=== PATIENT | female | born 1945 ===

== ENCOUNTER 2018-06-03 09:36 | Outpatient (REF) | payer MEDICARE, OTHER, SELFPAY ==
[2018-06-03 12:02] LABS: Anion Gap 9.3 mmol/L (3-11); BUN 17 mg/dL (7-18); CO2 25.7 mmol/L (21.0-32.0); CREATININE 0.94 mg/dL (0.55-1.02); Chloride 100 mmol/L (98-107); Estimated GFR 58.87 (mL/min/1.73m2); Glucose 112 mg/dL (70-100); Potassium 4.2 mmol/L (3.5-5.1); Sodium 135 mmol/L (136-145)
== END 2018-06-03 09:37 ==
LOC: NCHCN 09:36
PROVIDERS: PCP Nurse Practitioner Family; Visit Provider Nurse Practitioner Family
DX: I10 Essential (primary) hypertension (principal)
CPT/HCPCS: 80048

== ENCOUNTER 2018-06-10 10:00 | Outpatient (CLI) | payer MEDICARE, OTHER, SELFPAY | END 2018-06-10 10:01 | PROVIDERS: PCP Nurse Practitioner Family; Visit Provider Orthopaedic Surgery | DX: M70.62 Trochanteric bursitis, left hip (principal); M25.552 Pain in left hip | CPT/HCPCS: 20610; 99213; J1040 ==

== ENCOUNTER 2018-06-22 11:08 | Outpatient (REF) | payer MEDICARE, OTHER, SELFPAY ==
[2018-06-22 12:46] LABS: Iron 79 ug/dL (50-175); Total Iron Binding Capacity 316 ug/dL (250-450); Transferrin Sat 25 % (15-50)
[2018-06-22 12:47] LABS: Abs Immature Grans 0.11 k/cumm (0.0-0.09); Absolute Basophil Count 0.03 k/cumm (0.0-0.2); Absolute Lymphocyte Count 2.33 k/cumm (1.2-3.4); Basophils % 0.2; Eosinophils % 1.6; HGB 13.5 g/dL (12.0-15.5); Immature Grans % 0.8; Lymphocytes % 17.2; Mean Corp. HGB Concentration 32.9 g/dL (32.0-36.0); Mean Corpuscular Hemoglobin 28.4 pg (27.0-33.0); Mean Corpuscular Volume 86.3 fL (80-95); Monocytes % 6.7; Neutrophils % 73.5; Platelet Count 355 x1000/uL (130-400); RBC 4.75 m/cumm (4.00-5.20); RBC Distribution Width 13.7 % (11.7-14.6); White Blood Cell Count 13.53 k/cumm (4.4-10.8)
[2018-06-22 12:49] LABS: Absolute Eosinophil Count 0.22 k/cumm (0.0-0.7); Absolute Monocyte Count 0.91 k/cumm (0.11-0.7); Absolute Neutrophil Count 9.94 k/cumm (1.2-6.7)
[2018-06-22 13:06] LABS: Anion Gap 7.5 mmol/L (3-11); BUN 20 mg/dL (7-18); CO2 25.5 mmol/L (21.0-32.0); CREATININE 0.97 mg/dL (0.55-1.02); Calcium 8.9 mg/dL (8.5-10.1); Chloride 98 mmol/L (98-107); Estimated GFR 56.77 (mL/min/1.73m2); Ferritin 137 ng/mL (8-388); Glucose 96 mg/dL (70-100); Magnesium 1.7 mg/dL (1.8-2.4); Potassium 4.1 mmol/L (3.5-5.1); Sodium 131 mmol/L (136-145); Vitamin B12 420 pg/mL (193-986)
== END 2018-06-22 11:09 ==
LOC: NCHCN 11:08
PROVIDERS: PCP Nurse Practitioner Family; Visit Provider Nurse Practitioner Family
DX: E87.1 Hypo-osmolality and hyponatremia (principal); R25.2 Cramp and spasm; M79.669 Pain in unspecified lower leg; Z86.39 Personal history of other endocrine, nutritional and metabolic disease
CPT/HCPCS: 80048; 82607; 82728; 83540; 83550; 83735; 85025

== ENCOUNTER 2018-06-30 11:06 | Outpatient (REF) | payer MEDICARE, OTHER, SELFPAY ==
[2018-06-30 22:31] LABS: ALT 25 U/L (12-78); AST 14 U/L (15-37); Albumin 3.5 g/dL (3.4-5.0); Alkaline Phosphatase 69 U/L (46-116); Anion Gap 3.8 mmol/L (3-11); BUN 13 mg/dL (7-18); Bilirubin, Total 0.3 mg/dL (0.2-1.0); CO2 29.2 mmol/L (21.0-32.0); CREATININE 0.74 mg/dL (0.55-1.02); Calcium 8.8 mg/dL (8.5-10.1); Chloride 106 mmol/L (98-107); Glucose 76 mg/dL (70-100); Potassium 4.2 mmol/L (3.5-5.1); Sodium 139 mmol/L (136-145); Total Protein 6.8 g/dL (6.4-8.2)
[2018-06-30 23:08] LABS: Abs Immature Grans 0.03 k/cumm (0.0-0.09); Absolute Basophil Count 0.03 k/cumm (0.0-0.2); Absolute Eosinophil Count 0.18 k/cumm (0.0-0.7); Absolute Lymphocyte Count 2.17 k/cumm (1.2-3.4); Absolute Monocyte Count 0.56 k/cumm (0.11-0.7); Absolute Neutrophil Count 5.97 k/cumm (1.2-6.7); Basophils % 0.3; HCT 41.3 % (36.0-46.0); HGB 13.3 g/dL (12.0-15.5); Immature Grans % 0.3; Lymphocytes % 24.3; Mean Corp. HGB Concentration 32.2 g/dL (32.0-36.0); Mean Corpuscular Hemoglobin 28.7 pg (27.0-33.0); Mean Corpuscular Volume 89.2 fL (80-95); Mean Platelet Volume 9.6 fL (8.0-11.0); Monocytes % 6.3; Neutrophils % 66.8; Platelet Count 303 x1000/uL (130-400); RBC 4.63 m/cumm (4.00-5.20); RBC Distribution Width 14.3 % (11.7-14.6); White Blood Cell Count 8.94 k/cumm (4.4-10.8)
== END 2018-06-30 11:26 ==
LOC: NCHCN 11:06
PROVIDERS: PCP Nurse Practitioner Family; Visit Provider Nurse Practitioner Family
DX: D72.829 Elevated white blood cell count, unspecified (principal); I10 Essential (primary) hypertension
CPT/HCPCS: 80053; 85025

== ENCOUNTER 2018-08-10 00:56 | Outpatient (CLI) | payer MEDICARE, OTHER, SELFPAY ==
--- NOTE | 2018-08-10 13:30 | DI.DEXA_ITS ---
SYMPTOMS/DIAGNOSIS: MENOPAUSAL SCREENING, Z78.0 DEXA SCAN: The scanogram of the dorsolumbar spine is unremarkable. For the right forearm a T score of -0.5 and a Z score of 1.6 are within the normal range. For the left hip a T score of -0.7 and a Z score of 0.8 are also within the normal range. For the lumbar spine a T score of 0.5 and a Z score of 2.7 are within the normal range.
== END 2018-08-10 01:16 ==
PROVIDERS: PCP Nurse Practitioner Family; Visit Provider Nurse Practitioner Family
DX: Z78.0 Asymptomatic menopausal state (principal); Z13.820 Encounter for screening for osteoporosis
CPT/HCPCS: 77080

== ENCOUNTER → 2018-08-17 08:27 | Outpatient (BNVA) | payer MEDICARE, OTHER, SELFPAY | PROVIDERS: PCP Nurse Practitioner Family; Visit Provider Surgery | DX: R13.10 Dysphagia, unspecified (principal); I10 Essential (primary) hypertension | CPT/HCPCS: 99202; 99213 ==

== ENCOUNTER 2018-08-24 07:36 | Day surgery (SDC) | payer MEDICARE, OTHER, SELFPAY ==
--- NOTE | 2018-08-24 06:32 | W.PM.OP ---
Operative Note DATE OF PROCEDURE: 08/24/18 PRE-OP DIAGNOSIS: Dysphagia POST-OP DIAGNOSIS: other (mild gastritis, severe esophagitis with schatzki's ring) PROCEDURE: EGD with biopsies SURGEON: Yaneth Ny ANESTHESIA: MAC (Iraida Ramirez CRNA) ESTIMATED BLOOD LOSS: 3 PATHOLOGY: other (gastric biopsies, GE junction biopsies) COMPLICATIONS: None Patient was transported to: same day Patient's condition: stable Indications: Mrs. Montesinos is a pleasant 73-year-old female who was seen in the office with some swallowing issues. Risks, benefits and complications of an upper endoscopy were reviewed with her. She wished to proceed. No guarantees were given or implied. Findings: Mild gastritis Severe esophagitis with Schatzki's ring Procedure Description: After informed consent was obtained the patient was taken to the procedure room and placed in a supine position. Monitors were applied and a time out was done. The patients name, date of , procedure, allergies to medications and metal in their body was reviewed. The patient was then sedated. Once sedated and comfortable a bite block was placed. The scope was then introduced into the oropharynx. The oropharynx was grossly normal. The scope was advanced into the esophagus. The proximal and mid esophagus were normal. In the distal esophagus there was severe inflammation with a schatzki's ring at 32 cm. There was a small Hiatal Hernia. The scope was advanced into the stomach and through the pylorus into the duodenum. The duodenum was normal. The scope was retracted back into the stomach. There was mild inflammation of the stomach. Biopsies were done to rule out H. pylori. The scope was retracted into the esophagus and biopsies were done of the GE junction. The scope was removed and the patient was woken up and taken back to Same day surgery in stable condition. The patient tolerated the procedure well and there were no immediate complications. Follow up: The patient should follow up in 2-3 weeks in the office.
--- NOTE | 2018-08-24 06:42 | PDOC.DSDIS_ITS ---
Discharge Plan Disposition Patient Disposition: HOME Condition: Good Discharge Details Reason For Visit: Dysphagia/ EGD Attending Provider: Yaneth Ny Primary Care Provider: Meka Hadley Home Meds and New Rx's Prescriptions: Continue omega-3 fatty acids [Fish Oil Concentrate] 1,000 mg capsule 1,000 mg PO DAILY RF: 0 amlodipine 10 MG tablet 10 mg PO DAILY Qty: 30 RF: 0 lisinopril 40 MG tablet 40 mg PO DAILY RF: 0 potassium 99 mg Tablet 99 mg PO DAILY RF: 0 ergocalciferol (vitamin D2) [Vitamin D2] 50,000 unit Capsule 50,000 unit PO QWEEK RF: 0 metoprolol tartrate 25 MG tablet 25 mg PO TID RF: 0 Changed famotidine 20 MG tablet 20 mg PO HS Qty: 0 RF: 0 Discharge Instructions Instructions: Upper Endoscopy (DC), Gastritis (DC), Diet for Stomach Ulcers and Gastritis (GEN), Esophagitis (DC) Additional Instructions: Findings: Mild inflammation of the stomach Severe inflammation of the esophagus Follow up: 09/07 @13:15 New Medications: Omeprazole 40 mg in the morning Take your Famotidine (Pepcid) in the evening Please call if you develop: fevers >101.5 Nausea or Vomiting Abdominal pain that is not transient Shortness of breath DAY SURGERY UNIT POST COLONOSCOPY INSTRUCTIONS 1. Because there will be medication in your system for the next 24 hours, you may feel a little sleepy. Your coordination will be affected. Therefore: a. Do not drive or operate dangerous equipment for 24 hours. b. Do not drink alcohol beverages for 24 hours (not even beer). c. Plan to go home and rest for the day. 2. Generally there are no restrictions on your activity after a day or so has gone by, but you may feel a bit fatigued for a few days. 3 After you arrive home you may have a light meal and return to a normal diet as you can tolerate it without feeling sick to your stomach. 4. After surgery, you may feel pain or discomfort. This should be only transient , but if it persists please contact your doctor. 5. If there are any questions regarding the findings of your procedure, please feel free to contact your doctor. 6. If you are unable to contact your doctor with a problem, contact the hospital at [phone]. 7. Continue all your regular medications unless directed otherwise. I understand the above instructions and have no questions. Signature of Patient or Responsible Adult Escort Date/Time Name of Responsible Adult Escort Signature of Nurse Date/Time Referrals: Yaneth Ny MD [ [facility] STAFF PHYSICIAN] - 09/07/18 1:15 pm Activity:: Activity as Tolerated Diet:: low acid Discharge Orders Discharge Orders: Discharge Order (Routine); Ordered 08/24/18 Ordered By: Yaneth Ny
[2018-08-24 07:53] VITALS: BP 135/70; PULSE 58; RESP 18; TEMP 35.9; O2SAT 96
[2018-08-24] MEDS: Lactated Ringers 1,000 ML 80 ML IV (08:15)
--- NOTE | 2018-08-24 10:00 | STOM_PTH ---
PATIENT: Geovanna Montesinos LOC: DEB U#:[id number] AGE/SX: 73/F ROOM: RE08/24/[address]: Yaneth Ny MD : [id number] BED: DIS: 08/24/2018 SPEC #: [id number] RECD: 08/24/18 13:06 STATUS: JAN REQ #: [id number] SHERRY: 08/24/18 10:[address]: Yaneth Ny DEPT: Surgical Specimen RECD BY: Ольга Parham ENTERED: 08/24/18 13:09 SP TYPE: STOMACH OTHR DR: Meka Hadley Tissues: 1 - STOMACH BIOPSY 2 - ESOPHAGUS BIOPSY Procedures: GROSS AND MICRO LEVEL 4 Comments: [id number]
[2018-08-24 10:45] VITALS: BP 119/61; PULSE 58; RESP 16; TEMP 36; O2SAT 99
== END 2018-08-24 12:00 | disposition home or self-care (01) ==
LOC: SUR 07:36
PROVIDERS: PCP Nurse Practitioner Family; Visit Provider Surgery
PROC: 0DJ68ZZ Inspection of Stomach, Via Natural or Artificial Opening Endoscopic (ICD-10-PCS; CPT 43235; principal; 2018-08-24 09:00)
DX: R13.10 Dysphagia, unspecified (principal); K22.10 Ulcer of esophagus without bleeding; K21.0 Gastro-esophageal reflux disease with esophagitis; K31.89 Other diseases of stomach and duodenum; K44.9 Diaphragmatic hernia without obstruction or gangrene; I10 Essential (primary) hypertension
CPT/HCPCS: 43239; 88305

== ENCOUNTER 2018-09-14 10:59 | Outpatient (REF) | payer MEDICARE, OTHER, SELFPAY ==
[2018-09-14 13:06] LABS: Magnesium 1.9 mg/dL (1.8-2.4)
[2018-09-15 09:36] LABS: Hepatitis C Ab w Rflx HCV PCR Negative (NEGAT)
== END 2018-09-14 11:19 ==
LOC: NCHCN 10:59
PROVIDERS: PCP Nurse Practitioner Family; Visit Provider Nurse Practitioner Family
DX: E83.42 Hypomagnesemia (principal); I10 Essential (primary) hypertension; I25.10 Atherosclerotic heart disease of native coronary artery without angina pectoris; E87.1 Hypo-osmolality and hyponatremia; Z11.59 Encounter for screening for other viral diseases
CPT/HCPCS: 86803; 83735

== ENCOUNTER → 2018-09-28 13:59 | Outpatient (BNVA) | payer MEDICARE, OTHER, SELFPAY | PROVIDERS: PCP Nurse Practitioner Family; Referring Provider Nurse Practitioner Family; Visit Provider Surgery | DX: K20.9 Esophagitis, unspecified (principal); K29.00 Acute gastritis without bleeding; I10 Essential (primary) hypertension | CPT/HCPCS: 99212 ==

== ENCOUNTER 2019-01-06 14:44 | Outpatient (REF) | payer MEDICARE, OTHER, SELFPAY ==
[2019-01-06 21:33] LABS: Abs Immature Grans 0.04 k/cumm (0.0-0.09); Absolute Basophil Count 0.02 k/cumm (0.0-0.2); Absolute Eosinophil Count 0.14 k/cumm (0.0-0.7); Absolute Lymphocyte Count 2.25 k/cumm (1.2-3.4); Absolute Monocyte Count 0.55 k/cumm (0.11-0.7); Absolute Neutrophil Count 4.44 k/cumm (1.2-6.7); Basophils % 0.3; Eosinophils % 1.9; HCT 42.8 % (36.0-46.0); HGB 14.1 g/dL (12.0-15.5); Immature Grans % 0.5; Lymphocytes % 30.2; Mean Corp. HGB Concentration 32.9 g/dL (32.0-36.0); Mean Corpuscular Hemoglobin 28.4 pg (27.0-33.0); Mean Corpuscular Volume 86.1 fL (80-95); Mean Platelet Volume 9.9 fL (8.0-11.0); Monocytes % 7.4; Neutrophils % 59.7; Platelet Count 304 x1000/uL (130-400); RBC 4.97 m/cumm (4.00-5.20); RBC Distribution Width 13.9 % (11.7-14.6); White Blood Cell Count 7.44 k/cumm (4.4-10.8)
[2019-01-06 21:49] LABS: Iron 76 ug/dL (50-175); Total Iron Binding Capacity 315 ug/dL (250-450); Transferrin Sat 24 % (15-50)
[2019-01-06 22:23] LABS: ALT 18 U/L (12-78); AST 19 U/L (15-37); Albumin 3.5 g/dL (3.4-5.0); Alkaline Phosphatase 77 U/L (46-116); Anion Gap 9.1 mmol/L (3-11); BUN 17 mg/dL (7-18); Bilirubin, Total 0.5 mg/dL (0.2-1.0); CO2 27.9 mmol/L (21.0-32.0); Calcium 9.5 mg/dL (8.5-10.1); Chloride 106 mmol/L (98-107); Cholesterol 189 mg/dL (50-200); Ferritin 60 ng/mL (8-388); Glucose 81 mg/dL (70-100); HDL Cholesterol 45 mg/dL (40-60); LDL CHOLESTEROL 120 mg/dL (<100); Magnesium 1.9 mg/dL (1.8-2.4); Potassium 4.4 mmol/L (3.5-5.1); Sodium 143 mmol/L (136-145); TSH (W/Ref FT4) 1.67 uIU/mL (0.358-3.74); Total Protein 6.8 g/dL (6.4-8.2); Triglyceride 131 mg/dL (30-150); Vitamin B12 418 pg/mL (193-986)
== END 2019-01-06 15:04 ==
LOC: NCHCN 14:44
PROVIDERS: PCP Nurse Practitioner Family; Visit Provider Nurse Practitioner Family
DX: E83.42 Hypomagnesemia (principal); R41.82 Altered mental status, unspecified; E87.1 Hypo-osmolality and hyponatremia; I25.10 Atherosclerotic heart disease of native coronary artery without angina pectoris; I10 Essential (primary) hypertension; R41.0 Disorientation, unspecified
CPT/HCPCS: 80053; 80061; 83721; 82607; 82728; 83540; 83550; 83735; 84443; 85025

== ENCOUNTER 2019-01-17 00:49 | Outpatient (CLI) | payer MEDICARE, OTHER, SELFPAY ==
[2019-01-17] MEDS: Omnipaque 350 MG/ML 100 ML BTL IJ (13:51)
--- NOTE | 2019-01-17 13:52 | DI.CT_ITS ---
SYMPTOMS/DIAGNOSIS: CONFUSION, R41.0, MEMORY LOSS, MOMENT OF BLACK OUT, BUT STILL FUNCTIONING CT ANGIOGRAPHY OF THE BRAIN: No prior comparison exams are available. There is no evidence of vascular occlusion, dissection or significant stenosis. There is no vessel irregularity. No aneurysm is seen. A left frontal osteoma is seen. The mastoid air cells appear clear. There is minimal sinus mucosal thickening. IMPRESSION: No significant vascular stenosis or aneurysm. Incidental small left frontal skull osteoma.
== END 2019-01-17 01:09 ==
PROVIDERS: PCP Nurse Practitioner Family; Visit Provider Nurse Practitioner Family
DX: R41.0 Disorientation, unspecified (principal); R41.3 Other amnesia; R40.4 Transient alteration of awareness
CPT/HCPCS: 70496; J3490

== ENCOUNTER → 2019-02-21 08:25 | Outpatient (BNVA) | payer MEDICARE, OTHER, SELFPAY | PROVIDERS: PCP Nurse Practitioner Family; Referring Provider Nurse Practitioner Family; Visit Provider Nurse Practitioner Adult Health | DX: R41.3 Other amnesia (principal); I10 Essential (primary) hypertension | CPT/HCPCS: 99204; 99214 ==

== ENCOUNTER → 2019-05-09 09:29 | Outpatient (BNVA) | payer MEDICARE, OTHER, SELFPAY | PROVIDERS: PCP Nurse Practitioner Family; Visit Provider Nurse Practitioner Adult Health | DX: R41.3 Other amnesia (principal); I10 Essential (primary) hypertension | CPT/HCPCS: 99213 ==

== ENCOUNTER 2019-07-05 00:19 | Outpatient (CLI) | payer MEDICARE, OTHER, SELFPAY ==
--- NOTE | 2019-07-05 08:45 | DI.MAMMO_ITS ---
SYMPTOM/DIAGNOSIS: SCREENING Z12.31 MAMMOGRAM: 07/05 Mammograms were interpreted according to the usual protocol including computer analysis with CAD system, tomosynthesis and C view imaging. The breasts are of moderate density with fairly symmetrical distribution of fibroglandular tissue. No dominant mass or clumped microcalcification is identified in either breast. The current examination is compared with previous examinations including Jun 2017 and there has been no gross interval change in appearance in comparison with the previous studies. CONCLUSION: No specific evidence of malignancy at this time. Routine screening examinations are suggested at yearly intervals due to the family history of breast carcinoma. Category 1, breast density category B. MQSA ASSESSMENT OF FINDINGS: Negative. Category 1. Patient will receive a letter notifying them of these results. BI-RADS category B. There are scattered areas of fibroglandular density.
== END 2019-07-05 00:39 ==
PROVIDERS: PCP Nurse Practitioner Family; Visit Provider Nurse Practitioner Family
DX: Z12.31 Encounter for screening mammogram for malignant neoplasm of breast (principal); Z80.3 Family history of malignant neoplasm of breast
CPT/HCPCS: 77063; 77067

== ENCOUNTER 2019-12-12 22:56 | Outpatient (REF) | payer MEDICARE, OTHER, SELFPAY ==
[2019-12-12 21:23] LABS: Albumin 3.4 g/dL (3.4-5.0); Alkaline Phosphatase 69 U/L (46-116); Anion Gap 11.8 mmol/L (3-11); BUN 13 mg/dL (7-18); Bilirubin, Total 0.5 mg/dL (0.2-1.0); CO2 24.2 mmol/L (21.0-32.0); CREATININE 0.89 mg/dL (0.55-1.02); Calculated LDL 102 mg/dL (<100); Chloride 105 mmol/L (98-107); Cholesterol 176 mg/dL (<200); Glucose 125 mg/dL (74-106); HDL Cholesterol 40 mg/dL (40-60); Magnesium 1.9 mg/dL (1.8-2.4); Potassium 4.4 mmol/L (3.5-5.1); Sodium 141 mmol/L (136-145); Total Protein 6.5 g/dL (6.4-8.2); Triglyceride 171 mg/dL (<150); Vitamin B12 411 pg/mL (193-986)
[2019-12-12 21:51] LABS: ALT 25 U/L (14-59); AST 17 U/L (15-37)
== END 2019-12-12 23:16 ==
LOC: NCHCN 22:56
PROVIDERS: PCP Nurse Practitioner Family; Visit Provider Nurse Practitioner Family
DX: I10 Essential (primary) hypertension (principal); I25.10 Atherosclerotic heart disease of native coronary artery without angina pectoris; E87.1 Hypo-osmolality and hyponatremia; E83.42 Hypomagnesemia; R25.2 Cramp and spasm; E66.9 Obesity, unspecified
CPT/HCPCS: 80053; 80061; 82607; 83735

== ENCOUNTER 2020-11-15 11:32 | Outpatient (REF) | payer MEDICARE, OTHER, SELFPAY ==
[2020-11-15 14:32] LABS: ALT 28 U/L (14-59); AST 16 U/L (15-37); Albumin 3.6 g/dL (3.4-5.0); Alkaline Phosphatase 63 U/L (46-116); Anion Gap 9.1 mmol/L (3-11); BUN 16 mg/dL (7-18); Bilirubin, Total 0.6 mg/dL (0.2-1.0); CO2 26.9 mmol/L (21.0-32.0); CREATININE 0.97 mg/dL (0.55-1.02); Calcium 9.1 mg/dL (8.5-10.1); Calculated LDL 118 mg/dL (<100); Chloride 107 mmol/L (98-107); Cholesterol 185 mg/dL (<200); Estimated GFR 56.29 (mL/min/1.73m2); Glucose 90 mg/dL (74-106); HDL Cholesterol 46 mg/dL (40-60); Potassium 4.4 mmol/L (3.5-5.1); Sodium 143 mmol/L (136-145); TSH (W/Ref FT4) 1.25 uIU/mL (0.36-3.74); Triglyceride 109 mg/dL (<150); Vitamin B12 423 pg/mL (193-986)
[2020-11-15 14:41] LABS: Vitamin D 25 Total 82.3 ng/ml (30-100)
== END 2020-11-15 11:52 ==
LOC: NCHCN 11:32
PROVIDERS: PCP Nurse Practitioner Family; Visit Provider Nurse Practitioner Family
DX: F32.9 Major depressive disorder, single episode, unspecified (principal); I10 Essential (primary) hypertension; M25.552 Pain in left hip; E83.42 Hypomagnesemia; R47.01 Aphasia; G47.33 Obstructive sleep apnea (adult) (pediatric); K30 Functional dyspepsia; R13.10 Dysphagia, unspecified
CPT/HCPCS: 80053; 80061; 82306; 82607; 83735; 84443

== ENCOUNTER 2021-01-21 08:19 | Outpatient (REF) | payer MEDICARE, OTHER, SELFPAY ==
[2021-01-21 13:35] LABS: ALT 28 U/L (14-59); AST 16 U/L (15-37); Albumin 3.6 g/dL (3.4-5.0); Alkaline Phosphatase 72 U/L (46-116); Anion Gap 7.5 mmol/L (3-11); BUN 16 mg/dL (7-18); Bilirubin, Total 0.6 mg/dL (0.2-1.0); CO2 27.5 mmol/L (21.0-32.0); CREATININE 0.9 mg/dL (0.55-1.02); Calcium 9.2 mg/dL (8.5-10.1); Calculated LDL 64 mg/dL (<100); Chloride 107 mmol/L (98-107); Cholesterol 129 mg/dL (<200); Glucose 101 mg/dL (74-106); HDL Cholesterol 48 mg/dL (40-60); Potassium 4.5 mmol/L (3.5-5.1); Sodium 142 mmol/L (136-145); Triglyceride 88 mg/dL (<150)
== END 2021-01-21 08:20 | disposition home or self-care (01) ==
LOC: NCHCN 08:19
PROVIDERS: PCP Nurse Practitioner Family; Visit Provider Nurse Practitioner Family
DX: I10 Essential (primary) hypertension (principal); E87.1 Hypo-osmolality and hyponatremia; E83.42 Hypomagnesemia
CPT/HCPCS: 80053; 80061

== ENCOUNTER 2021-03-06 08:19 | Emergency (ER) | payer MEDICARE, OTHER, SELFPAY ==
[2021-03-06] VITALS (71 sets, daily range): BP systolic 102–208; BP diastolic 40–135; PULSE 44–64; RESP 11–26; TEMP 36.8–37.9; O2SAT 93–99
--- NOTE | 2021-03-06 08:15 | RT.EKG_ITS ---
APPROVED REPORT Exam: Resting ECG Reason for Exam: chest pain Patient Location: E HR:52 bpm ECG Measurements Heart Rate 52 AXIS NM 179 P 63 QRSd 90 QRS 14 QT 437 T 37 QTc 407 Conclusion Sinus bradycardia...rate< [address] depression, anterolateral leads...ST <-0.07mV, I aVL V2-V6 no STEMI, non-diagnostic EKG I have reviewed and interpreted ECG and agree with software generated interpretation.
--- NOTE | 2021-03-06 08:30 | DI.CT_ITS ---
Exam(s) CT CHEST PE CTA EXAM: CT CHEST PE CTA CLINICAL HISTORY: SOB/R sided back pain. TECHNIQUE: Imaging Protocol: CT angiography of the chest was performed using pulmonary embolus lillian col. Multi planar reconstructions were performed. CONTRAST MATERIAL: Intravenous: Omnipaque 350 Contrast volume: 100 cc COMPARISON: CT CT BRAIN CTA from 01/17/2019 FINDINGS: CHEST: PULMONARY ARTERIES: There are no intraluminal filling defects to suggest acute pulmonary emboli. LUNGS: There are no infiltrates nor evidence of pulmonary infarction.. There are no pleural effusions . In the right lung there is a 6 x 5 millimeter noncalcified nodule located 1 centimeter in from the pleural surface in the lateral segment right middle lobe. Another smaller subpleural nodule seen po steriorly over the right lower lobe posterior basal lab-lateral basal segment measuring approximately 4 millimeters. In the left upper lobe there is a faint subpleural 5 millimeter nodular density note d. No other focal left lung findings. No pleural effusions. No significant focal findings in the t rachea and mainstem bronchi. MEDIASTINUM: There is no hilar nor mediastinal adenopathy. Visualized thyroid unremarkable. CARDIAC: Mild cardiomegaly. No pericardial effusion.Caliber of the thoracic aorta is within normal l imits. There is no significant shift of the interventricular septum. OSSEOUS: No significant osseous lesions.. OTHER: There appears to be a mass in the proximal stomach. endoscopy is recommended. IMPRESSION: 1. No evidence of acute pulmonary emboli. No evidence of pulmonary infarction.No pleural effusions. Small bilateral pulmonary nodules as described above. Recommend follow-up CT scan 6 months. 2. No intrathoracic adenopathy. 3. Mild cardiomegaly. No pericardial effusion 4. incidentally noted on the lower most images this chest study is what appears to be a possible mass in the proximal stomach. This requires investigation to rule out neoplasm at this level. Findings called by myself to the ER provider. RADIATION DOSE DELIVERED: 341.13mGy.cm Total DLP DATA REPOSITORY: All CT scans at this facility are submitted to the National Radiology Data Registry (NRDR) Dose Index Registry (DIR) with the [employer] ([employer]). RADIATION OPTIMIZATION: All CT scans at this facility use at least one of these dose optimization te chniques: automated exposure control; mA and/or kV adjustment per patient size (includes targeted exa ms where dose is matched to clinical indication); or iterative reconstruction.
[2021-03-06] MEDS: Normal Saline Flush 10 ML SYR IVP (08:35)
--- NOTE | 2021-03-06 08:46 | ED.GENADUL_ITS ---
Discharge Plan Disposition Patient Disposition: HOME Condition: Stable Discharge Details Clinical Impression: Breath shortness, Bradycardia, Back pain Primary Care Provider: Meka Hadley ED Provider: Mike Edmondson Home Meds and New Rx's Prescriptions: New cyclobenzaprine 5 mg tablet 5 mg PO TID PRNQty: 10 RF: 0 Continued omega-3 fatty acids [Fish Oil Concentrate] 1,000 mg capsule 1,000 mg PO DAILY RF: 0 amlodipine 10 MG tablet 10 mg PO DAILY Qty: 30 RF: 0 famotidine 40 mg tablet 40 mg PO BID Qty: 60 RF: 5 amlodipine [Norvasc] 10 mg tablet 10 mg PO DAILY RF: 0 fluoxetine [Prozac] 10 mg capsule 10 mg PO DAILY RF: 0 omeprazole 20 mg capsule,delayed release(DR/EC) 20 mg PO DAILY PRNRF: 0 lisinopril 40 MG tablet 40 mg PO DAILY RF: 0 potassium 99 mg Tablet 99 mg PO DAILY RF: 0 ergocalciferol (vitamin D2) [Vitamin D2] 50,000 unit Capsule 50,000 unit PO DAILY RF: 0 metoprolol tartrate 25 mg tablet 25 mg PO BID RF: 0 simvastatin 20 mg tablet 20 mg PO DAILY RF: 0 Discharge Instructions Instructions: Dyspnea (ED), Back Pain (ED), Bradycardia (ED) Additional Instructions: At this time based upon your work-up I was going to admit you to our facility but after being evaluated by Dr. Urbano our hospitalist team, she feels as though you can be safely discharged. I am providing you a prescription of Flexeril for muscle spasms. Please take this medication as directed, this may cause drowsi ness. Gentle stretching as tolerated. Cool and/or warm compresses every 2 hours for twins. [id number] Tylenol as directed. I am also setting you up for an outpatient stress test, please set this up TE. I strongly recommend that you contact your primary care provider tomorrow to discuss your ER evaluation and to discuss need for outpatient reevaluation and your ongoing bradycardia. I would hold off on taking your metoprolol this evening and await to talk with your primary care provider tomorrow regarding when they would like you to take it or if they would like you to take it at all given your bradycardia. Medical Decision Making This is a 75-year-old female with a past medical history of hypertension, hyperlipidemia, obesity, chronic back and hip pain, presents to the ER for what she describes as shortness of breath, worse when trying to take a deep breath and a right sided back pain worse with movement and palpation that began 1 hour ago. Clinically she appears well, nontoxic. Lungs are clear to auscultation, respirations are 13, O2 sat 97% on room air. Initial temperature was 37.9 however she did not look ill, repeat temperature was 36.8 without any antipyretics. Plan is to obtain IV access, give full dose aspirin, initiate cardiac work-up and given her shortness of breath with back pain simply obtain a CTA of her chest as opposed to a 1 view chest x-ray and then awaiting a D-dimer. Patient is not having any active chest pain so therefore we will not initiate any nitro. Differential includes but not excluded to pneumonia, PE, ACS, Covid, musculoskeletal pain, dissection, etc. Patient given a 1 L IV normal saline. Initial laboratory values are unremarkable for obvious emergent process. Awaiting CTA. Upon reevaluation patient reports her pain in her back remains a 3 out of 10, dull, aching but denies any chest pain or chest tightness. Will provide a Lidoderm patch to her right thoracic region over her discomfort. She is agreeable to awaiting a repeat troponin and EKG. Given her age and comorbidities, her heart score is either a 4 or 5 depending on if you would consider her presentation low or moderate risk. She has not had a recent stress test or echocardiogram, I do believe that admitting her for cardiac rule out certainly reasonable. Of note when she returned from radiology, her blood pressure was considerably elevated. When checking her blood pressure cuff it was upside down and loose, once it was readjusted her blood pressure seemed to normalize to what it has been during her entire visit. Also, her resting heart rate has been in the high 40s, 50s and low 60s the entire time she has been here. When reviewing previous medical records, she does not seem to typically be that bradycardia CTA read by radiology no evidence of acute PE. Small bilateral pulmonary nodu les. No intrathoracic adenopathy. Mild cardiomegaly, no pericardial effusion. Incidentally noted on the lowermost images this chest study is what appears to be a possible mass in the proximal stomach. This requires investigation to rule out neoplasm at this level Patient given 125 cc normal saline per hour as a maintenance fluid. Patient is not having any abdominal pain, nausea, vomiting, I believe at this time the CTA is negative for acute process, likely needs endoscopy for further evaluation of potential neoplasm. Likely incidental finding A Lidoderm patch had been applied to her thoracic region, she reports that the reproducible superficial discomfort has resolved but there still seems to be a more deep ache present. Repeat troponin remains less than 0.05. Repeat EKG performed at 1146, please see official report by Dr. Fox. Sinus bradycardia, ventricular rate of 45. I did talk with the patient regarding her bradycardia. She denies any lightheadedness or dizziness. She is mentating just fine. She tells me that she has talked with her primary care provider about her bradycardia, during her recent visit she has noticed her heart rate being in the very low 50s. They were going to keep an eye on this and if necessary contact cardiology Case discussed with Dr. Urbano at 1255. She questions if this could be GI related given her history. She recommends obtaining a lipase, giving a GI cocktail, and then reassessing. Covid is negative. Lipase is unremarkable. GI cocktail has made no change in her symptoms. I once again spoke with Dr. Urbano at 1358, she recommends giving p.o. Tylenol and she will come to the ER to personally evaluate the patient Dr. Urbano evaluated the patient in the ER, please see her note. Apparently patient was stretching when her pain came on, and reports that the back pain caused her shortness of breath. Dr. Urbano states that she was able to feel a muscle spasm, was able to reproduce this, and was able to massage the muscle spasm and the patient feels significantly better. She believes that the patient can be safely discharged from our ER with Tylenol and a muscle relaxer. She has discussed this plan with the patient. I went back into the room to talk with the patient and she is agreeable for discharge home and is comfortable with the plan set forth by Dr. Urbano. Given my initial concern for the patient, out of abundance of precaution, I will set her up for an outpatient stress test. ECG Data Attestation: I personally reviewed and interpreted this ECG (s) as follows: Interpretation: Please see official report by Dr. Fox. Sinus bradycardia, ventricular rate of 52. No STEMI. HPI General Mode of arrival: ambulatory . Date/Time Provider Initiated Documentation: 03/06/21 08:19 . Limitations to Documentation: no limitations . Information obtained by: patient and family . HPI Narrative: This is a 75-year-old female, past medical history of hypertension, obesity, pancreatitis, chronic back and hip pain, arteriosclerotic cardiovascular disease, presenting to the ER today for what she describes as shortness of breath and right-sided thoracic back pain. She states that the shortness of breath and back pain began suddenly approximately 1 hour ago while eating breakfast. She describes the shortness of breath as the inability to take a deep breath. She denies any cough, wheezing. She reports the pain was sharp and 8 out of 10 when it began, worse with movement or deep breathing. She did subsequently take 2 ibuprofen, reports the pain now is a 3 or 4 and is a dull ache. She denies recent illness or trauma. She denies any cardiovascular disease history in her family. Re ports that her mother did have lung cancer but she smoked her whole life. Patient is not a smoker. She denies recent illness or trauma. Denies headache, visual changes, neck pain, radiation of pain to her chest, arms, jaw. Denies any abdominal pain, nausea, vomiting, dysuria, diarrhea, pain or swelling in her legs, history of DVT or PE. Denies skin rash. Patient states that she does not believe that she has had a stress test or echocardiogram in a very long time. She denies any chest pain. She is fully vaccinated against Covid, her second shot was sometime in late December. She is not anticoagulated, does not take a baby aspirin. Her triage note states that she has chest pain however she specifically denies chest pain to me. She reports the pain is in her back under her right scapula and is in one particular spot. It does not radiate through into her chest. She tells me that the worst of her pain when it began, perhaps she had a small amount of chest tightness but no chest tightness now. Related Data Home Medications Medication Instructions Recorded Confirmed lisinopril 40 mg PO DAILY 11/23/14 03/06/21 amlodipine 10 mg PO DAILY #30 tab-cap 11/30/14 02/21/19 omega-3 fatty acids 1,000 mg 1,000 mg PO DAILY 08/17/18 03/06/21 capsule ergocalciferol (vitamin D2) 50,000 unit PO DAILY 08/20/18 03/06/21 [Vitamin D2] potassium 99 mg PO DAILY 08/20/18 03/06/21 metoprolol tartrate 25 mg tablet 25 mg PO BID tab 02/21/19 03/06/21 famotidine 40 mg tablet 40 mg PO BID #60 tab 11/08/19 03/06/21 amlodipine 10 mg tablet 10 mg PO DAILY 11/20/20 03/06/21 fluoxetine 10 mg capsule 10 mg PO DAILY 11/20/20 03/06/21 omeprazole 20 mg capsule,delayed 20 mg PO DAILY PRN 11/20/20 03/06/21 release cyclobenzaprine 5 mg PO TID PRN #10 tab 03/06/21 simvastatin 20 mg PO DAILY 03/06/21 03/06/21 Previous Rx's Medication Instructions Recorded famotidine 40 mg tablet 40 mg PO BID #60 tab 11/08/19 cyclobenzaprine 5 mg PO TID PRN #10 tab 03/06/21 Allergies Allergy/AdvReac Type Severity Reaction Status Date / Time No Known Allergies Allergy Verified 03/06/21 08:50 General Stated Complaint: Chest Pain LEOBARDO: 2 Review of Systems Constitutional Constitutional: Denies fatigue, Denies fever(s), Denies headache(s) and Denies weakness Eyes Eyes: Denies change in vision ENT Ears, Nose, Mouth, and Throat: Denies headache(s) Cardiovascular Cardiovascular: Denies chest pain and Reports dyspnea Respiratory Respiratory: Denies cough and Reports dyspnea Gastrointestinal Gastrointestinal: Denies abdominal pain, Denies nausea and Denies vomiting Genitourinary Genitourinary: Denies dysuria Musculoskeletal Musculoskeletal: Reports back pain, Denies numbness and Denies tingling Integumentary/Breasts Skin/Breast: Denies rash Neurologic Neurologic: Denies headache(s), Denies numbness, Denies tingling and Denies weakness Endocrine Endocrine: Denies fatigue Hematologic/Lymphatic Hematologic/Lymphatic: Denies easy bleeding and Denies easy bruising [facility] Medical History Actinic skin damage Altered consciousness Aphasia ASCVD (arteriosclerotic cardiovascular disease) BCC (basal cell carcinoma) Bilateral leg cramps Chronic left hip pain Cold intolerance Confusion Dermatitis of ear canal Dyspepsia Dysphagia Ear pain, right Esophagitis determined by endoscopy Essential hypertension Family history of skin cancer Gastritis History of depression Hypomagnesemia Hyponatremia Left hip pain Obesity Pain, joint, knee, left Pancreatitis Periodic limb movement disorder Preventative health care Skin nodule Thoracic back pain Surgical History History of esophagogastroduodenoscopy (EGD) (~08/24/18) Social History Smoking/Tobacco Use Status: Never Smoking risk assessment performed?: Yes Alcohol Intake: current Alcohol Intake frequency: a few times a month Drug use: Never Substance use type: does not use Household members: spouse Housing: house Do you feel safe at home: Yes Do you feel safe in your relationship?: Yes Exam Const General: cooperative, healthy appearing, comfortable and no acute distress Orientation: alert, awake and oriented x3 HENMT Head: normal to inspection, normocephalic and atraumatic Face and sinus: normal facial exam Mouth: moist mucous membranes Eyes General: appearance normal, both eyes and all related structures Conjunctivae: conjunctivae normal Neck Neck: normal visual inspection, full ROM, no meningeal signs, trachea midline, supple and nontender Chest Chest: normal palpation of entire chest wall Resp Effort & Inspection: normal respiratory effort and able to speak in complete sentences Auscultation: clear to auscultation bilaterally Cardio Rate: regular rate Rhythm: regular rhythm GI Inspection: normal to inspection Palpation: soft, not firm, no pulsatile masses and nontender Back/Spine/Pelvis Back: no CVA tenderness and back tenderness Back/spine/pelvis image: 1. Point tenderness to palpation. There is no erythema, warmth, deformity, crepitus. No induration or fluctuance. Skin General skin exam: no rashes or lesions noted Neuro General: patient alert, patient awake, moves all extremities and no focal motor deficits Cognition: normal cognition Speech: speech normal Gait: normal gait Motor: muscle tone normal throughout Sensory Exam: no sensory deficits noted Extrem General: normal to inspection, full ROM, capillary refill normal, no pedal edema and no calf tenderness Psych Appearance: grossly normal Mental Status: mental status grossly normal Course Vital Signs Vital signs: Vital Signs Temperature 37.9 C H 03/06/21 08:20 Pulse 57 L 03/06/21 08:20 Respiratory Rate 13 03/06/21 08:20 Blood Pressure 140/55 L 03/06/21 08:20 Pulse Oximetry 97 03/06/21 08:20 Temperature 37.9 C H 03/06/21 08:20 Temperature Source Skin 03/06/21 08:20 Pulse 57 L 03/06/21 08:20 Respiratory Rate 13 03/06/21 08:20 Blood Pressure 140/55 L 03/06/21 08:20 Pulse Oximetry 97 03/06/21 08:20 Oxygen Delivery Method Room Air 03/06/21 08:20 Oxygen Flow Rate 0 03/06/21 08:20 Pain Level 4 03/06/21 08:20 Comment 03/06/21 08:20
[2021-03-06] MEDS: Aspirin 81 MG CHEW 324 MG CH (08:48)
[2021-03-06 08:55] LABS: Abs Immature Grans 0.04 10^3/uL (0.0-0.06); Absolute Basophil Count 0.05 10^3/uL (0.0-0.2); Absolute Eosinophil Count 0.22 10^3/uL (0.0-0.7); Absolute Lymphocyte Count 1.85 10^3/uL (1.2-3.4); Absolute Monocyte Count 0.61 10^3/uL (0.1-0.8); Absolute Neutrophil Count 6.32 10^3/uL (1.2-6.7); Basophils % 0.6; Eosinophils % 2.4; HCT 43.4 % (36.0-46.0); HGB 14.1 g/dL (11.2-15.7); Immature Grans % 0.4; Lymphocytes % 20.4; MCH 28.7 pg (27.0-33.0); MCHC 32.5 % (32.0-36.0); MCV 88.2 fL (80-95); MPV 9.2 fL (8.0-11.0); Monocytes % 6.7; Neutrophils % 69.5; Nucleated RBC 0 %; Platelet Count 291 10^3/uL (130-400); RBC 4.92 10^6/uL (3.93-5.22); RDW 12.9 % (11.7-14.6); RDW-SD 41.5 fL; WBC 9.09 10^3/uL (4.4-10.8)
[2021-03-06 09:10] LABS: PTT Activated 23.5 sec (21.0-27.5); Prothrombin Time 10.4 sec (9.3-11.0)
[2021-03-06 09:12] LABS: Source Nasal/Nares
[2021-03-06 09:14] LABS: ALT 24 U/L (14-59); AST 20 U/L (15-37); Albumin 3.6 g/dL (3.4-5.0); Alkaline Phosphatase 74 U/L (46-116); Anion Gap 6.6 mmol/L (3-11); BUN 13 mg/dL (7-18); Bilirubin, Total 0.6 mg/dL (0.2-1.0); CO2 29.4 mmol/L (21.0-32.0); CREATININE 0.9 mg/dL (0.55-1.02); Chloride 106 mmol/L (98-107); Glucose 91 mg/dL (74-106); NT-proBNP 196 pg/mL (<300); Potassium 4.4 mmol/L (3.5-5.1); Sodium 142 mmol/L (136-145); Total Protein 7.4 g/dL (6.4-8.2)
[2021-03-06 09:15] LABS: Troponin I < 0.05 ng/mL (<0.06)
[2021-03-06] MEDS: Normal Saline 1,000 ML 1000 ML IV (09:28)
[2021-03-06 09:43] LABS: Bilirubin Negative (Negative); Blood Negative (Negative); Clarity Clear (Clear); Glucose Negative (Negative); Ketones Negative (Negative); Leukocyte Esterase Negative (Negative); Nitrite Negative (Negative); Specific Gravity 1.015 (1.005-1.025); Urobilinogen 0.2 EU/dL (Up TO 0.2); pH 7.5 (5-8)
[2021-03-06] MEDS: Omnipaque 350 MG/ML 100 ML BTL IV (10:20)
--- NOTE | 2021-03-06 11:30 | RT.EKG_ITS ---
APPROVED REPORT Exam: Resting ECG Reason for Exam: Chest pain 3HR repeat Patient Location: E HR:45 bpm ECG Measurements Heart Rate 45 AXIS AK 182 P 50 QRSd 88 QRS 10 QT 480 T 31 QTc 416 Conclusion Sinus bradycardia...rate< 60 no STEMI, non-diagnostic EKG
[2021-03-06] MEDS: Lidocaine 5% Patch 1 PATCH TP (11:35)
--- NOTE | 2021-03-06 12:03 | NUR.NOTE ---
when pt returned form radiology the BP cuff was not placed correctly resulting in false readings corrected cuff with baseline numbers Nursing Note:
[2021-03-06 12:29] LABS: Troponin I < 0.05 ng/mL (<0.06)
[2021-03-06 13:36] LABS: COVID-19 PCR Negative (Negative)
[2021-03-06 13:50] LABS: Lipase 105 U/L (73-393)
[2021-03-06] MEDS: Acetaminophen 500 MG TAB 1000 MG PO (14:05)
--- NOTE | 2021-03-06 15:07 | W.PM.PROGNOT ---
Date of Service Date of service: 03/06/21 Time of Service: 14:45 Subjective Subjective Interval history since last seen: Ms Montesnios is a 75 year old female with h/o gastritis/esophagitis/GERD, hypertension, hyperlipidemia, obesity who had a sudden onset of right upper back pain during breakfast today which was worse with stretching of RUE. She had shortness of breath which she now attributes to having the pain in the back and it hurting to take a deep breath. The patient had a negative cardiac workup in the ED. On my physical exam, the patient has a palpable muscle spasm in the infraspinatus/rhomboid area. The spasm was already improving on its own + with the lidoderm patch, but it improved even more so I massaged it. I suspect that she pulled the muscle while doing her morning piriformis stretches. I do not feel that this patient warrants further ischemic workup at this time. She should be discharged home with tylenol, muscle relaxants, heat/ice, and a referral to physical therapy (which she already attends). Case discussed with LETICIA Aburto. Objective Last Vital Signs Temp 36.8 C 03/06/21 09:13 Pulse 48 L 03/06/21 14:31 Resp 13 03/06/21 14:31 BP 118/64 03/06/21 14:31 Pulse Ox 98 03/06/21 14:31 Laboratory Results - last 24 hr 03/06/21 03/06/21 03/06/21 08:33 08:35 08:35 WBC 9.09 RBC 4.92 Hgb 14.1 Hct 43.4 MCV 88.2 MCH 28.7 MCHC 32.5 RDW 12.9 Plt Count 291 MPV 9.2 Immature Gran % 0.4 Neutrophils % 69.5 Lymphocytes % 20.4 Monocytes % 6.7 Eosinophils % 2.4 Basophils % 0.6 Nucleated RBC % 0 Absolute Neutrophils 6.32 Absolute Lymphocytes 1.85 Absolute Monocytes 0.61 Absolute Eosinophils 0.22 Absolute Basophils 0.05 PT 10.4 INR 1.0 APTT 23.5 Sodium 142 Potassium 4.4 Chloride 106 Carbon Dioxide 29.4 Anion Gap 6.6 BUN 13 Creatinine 0.9 Estimated GFR/1.73 m2 >= 60.00 Glucose 91 Calcium 9.0 Magnesium 2.0 Total Bilirubin 0.6 AST 20 ALT 24 Alkaline Phosphatase 74 Troponin I < 0.05 NT-Pro-B Natriuret Pep 196 Total Protein 7.4 Albumin 3.6 Lipase Urine Color Urine Clarity Urine pH Ur Specific [place] Urine Protein Urine Ketones Urine Blood Urine Nitrite Urine Bilirubin Urine Urobilinogen Ur Leukocyte Esterase Urine Glucose COVID-19 Source SARS-CoV-2 (PCR) 03/06/21 03/06/21 03/06/21 08:41 09:05 09:15 WBC RBC Hgb Hct MCV MCH MCHC RDW Plt Count MPV Immature Gran % Neutrophils % Lymphocytes % Monocytes % Eosinophils % Basophils % Nucleated RBC % Absolute Neutrophils Absolute Lymphocytes Absolute Monocytes Absolute Eosinophils Absolute Basophils PT INR APTT Sodium Potassium Chloride Carbon Dioxide Anion Gap BUN Creatinine Estimated GFR/1.73 m2 Glucose Calcium Magnesium Cancelled Total Bilirubin AST ALT Alkaline Phosphatase Troponin I NT-Pro-B Natriuret Pep Cancelled Total Protein Albumin Lipase Urine Color Yellow Urine Clarity Clear Urine pH 7.5 Ur Specific [place] 1.015 Urine Protein Negative Urine Ketones Negative Urine Blood Negative Urine Nitrite Negative Urine Bilirubin Negative Urine Urobilinogen 0.2 Ur Leukocyte Esterase Negative Urine Glucose Negative COVID-19 Source Nasal/nares SARS-CoV-2 (PCR) Negative 03/06/21 03/06/21 11:45 11:45 WBC RBC Hgb Hct MCV MCH MCHC RDW Plt Count MPV Immature Gran % Neutrophils % Lymphocytes % Monocytes % Eosinophils % Basophils % Nucleated RBC % Absolute Neutrophils Absolute Lymphocytes Absolute Monocytes Absolute Eosinophils Absolute Basophils PT INR APTT Sodium Potassium Chloride Carbon Dioxide Anion Gap BUN Creatinine Estimated GFR/1.73 m2 Glucose Calcium Magnesium Total Bilirubin AST ALT Alkaline Phosphatase Troponin I < 0.05 NT-Pro-B Natriuret Pep Total Protein Albumin Lipase 105 Urine Color Urine Clarity Urine pH Ur Specific [place] Urine Protein Urine Ketones Urine Blood Urine Nitrite Urine Bilirubin Urine Urobilinogen Ur Leukocyte Esterase Urine Glucose COVID-19 Source SARS-CoV-2 (PCR)
== END 2021-03-06 15:37 | disposition home or self-care (01) ==
PROVIDERS: Emergency Provider Physician Assistant; PCP Nurse Practitioner Family
DX: R06.02 Shortness of breath (principal); R00.1 Bradycardia, unspecified; M54.9 Dorsalgia, unspecified; Z20.822 Contact with and (suspected) exposure to COVID-19
CPT/HCPCS: 71275; 80053; 83690; 87635; 93005; 96360; 96361; 99285; 81003; 83735; 83880; 84484; 85025; 85610; 85730; 93010; 99284; J3490

== ENCOUNTER 2021-03-11 02:03 | Outpatient (CLI) | payer MEDICARE, OTHER, SELFPAY ==
--- NOTE | 2021-03-11 11:00 | DI.NM_ITS ---
APPROVED REPORT Exam: Exercise Treadmill Patient Location: Out-Patient Room/Bed: Stress Nurse: Lizbet Alston RN Ordering Provider:ZEFERINO YAO, Contact Number: [phone] BMI: 29.95 Baseline Rhythm: Sinus Rhythm Indications: SOB Medical History Medical History: Hypertension, hyperlipidemia, obesity, chronic back/hip pain, arteriosclerotic CVD, dyspepsia, hypomagnesemia, hyponatremia, pancreatitis Cardiac Medications: Amlodipine, famotidine, omeprazole, lisinopril, potassium, metoprolol tartrate, simvastatin Allergies: NKA Cardiac Risk Factors: Hypertension, hyperlipidemia, obesity, smoker (former), CVD Previous Cardiac Procedures: None Pretest Chest Pain Characteristics: None Exercise History: Physically active Physical Disabilities: None Lung Sounds: Clear to auscultation Heart Sounds: Regular Stress Test Details Test: Exercise stress testing was performed using a Randall protocol. Nuclear Acquisition: Rest Tc-99m/Stress Tc-99m 1 day Rest Isotope: Tc-99m Sestamibi. Dose: 11.3 Date: 03/11/2021 Injection Time: 1130 Stress Isotope: Tc-99m Sestamibi. Dose: 36.0 Date: 03/11/2021 Injection Time: 1318 HR Resting HR Supine: 62 bpm Max Heart Rate (APMHR): 147.673385 bpm Resting HR Standin bpm Target HR (85% APMHR): 124.483400 bpm Max HR Achieved: 143 bpm % of APMHR: 97.28 Recovery HR: 69 bpm HR response to stress: Normal HR response to stress BP Resting BP Supine: 130/66 mmHg Resting BP Standin/74 mmHg Max BP: 152/70 mmHg Recovery BP: 136/74 mmHg BP response to stress: Normal blood pressure response to stress. ECG Resting ECG: Sinus Rhythm Ectopy: None Stress ECG: Sinus Tachycardia ST Change: No significant ST segment changes noted Arrhythmia: Rare PVC Recovery ECG: Sinus Rhythm Recovery ST Change: No significant ST segment changes noted Recovery Arrhythmia: Occasional PAC Clinical Reason for Termination: Fatigue Stress Symptoms: Dyspnea, General Fatigue Exercise duration: 2 min59 sec Highest Stage Reached: Stage 1: 1.7 mph at 10% grade. Exercise capacity: 4.64 METs Rate Pressure Product: 31960 Stress Test Summary STAGE Time (mins) Speed (mph) Grade (%) HR BP SYMPTOMS METS Supine 62 130/66 Standing 74 136/74 1 3 1.7 10 141 mild SOB, SpO2 95% 4.6 1 min recovery 113 152/70 3 min recovery 83 140/72 6 min recovery 69 136/74 MPI Conclusion The ejection fraction was 62% with stress. There were no wall motion abnormalities. There was no evidence of ischemia on the imaging portion of the exam. This represents a normal SPECT stress test. Radiologist Interpretation Radiologist agrees with Supervisor [employer]'s Interpretation. Radiologist Interpretation by: Rosey Washington MD Interpretation Date/Time: 03/12/2021 14:05:33
== END 2021-03-11 02:23 ==
PROVIDERS: PCP Nurse Practitioner Family; Visit Provider Nurse Practitioner Family
DX: R06.02 Shortness of breath (principal); I10 Essential (primary) hypertension; E78.5 Hyperlipidemia, unspecified; E66.9 Obesity, unspecified; Z87.891 Personal history of nicotine dependence; I25.10 Atherosclerotic heart disease of native coronary artery without angina pectoris
CPT/HCPCS: 78452; 93016; 93018; 93017

== ENCOUNTER 2021-03-13 13:01 | Outpatient (RCR) | payer MEDICARE, OTHER, SELFPAY ==
--- NOTE | 2021-03-13 10:00 | HOLTER_ITS ---
APPROVED REPORT Conclusion There is a 24-hour monitor ordered for indication of bradycardia. The patient was in normal sinus rhythm for the majority of the recording with an average heart rate o f 78 bpm (55???127bpm) There were no episodes of supraventricular tachycardia nor any episodes of ventricular tachycardia. There were rare PACs and rare PVCs. There is no evidence of atrial fibrillation, no pauses greater than 3 seconds and no evidence of high degree heart block. 1 patient triggered event was associated with normal sinus rhythm.
== END 2021-03-25 23:59 | disposition home or self-care (01) ==
LOC: RT 13:01
PROVIDERS: PCP Nurse Practitioner Family; Visit Provider Nurse Practitioner Family
DX: R00.1 Bradycardia, unspecified (principal)
CPT/HCPCS: 93227; 93225; 93226

== ENCOUNTER → 2021-04-11 10:28 | Outpatient (BNVA) | payer MEDICARE, OTHER, SELFPAY | PROVIDERS: PCP Nurse Practitioner Family; Referring Provider Nurse Practitioner Family; Visit Provider Physical Therapy Assistant | DX: R13.10 Dysphagia, unspecified (principal); R93.5 Abnormal findings on diagnostic imaging of other abdominal regions, including retroperitoneum; I10 Essential (primary) hypertension; G47.33 Obstructive sleep apnea (adult) (pediatric) | CPT/HCPCS: 99213 ==

== ENCOUNTER 2021-04-22 02:06 | Outpatient (CLI) | payer MEDICARE, OTHER, SELFPAY ==
--- NOTE | 2021-04-22 10:30 | DI.RAD_ITS ---
Exam(s) XR HIP PELVIS ADULT BL EXAM: XR HIP PELVIS ADULT BL CLINICAL HISTORY: HIP PAIN LINDA, [id number]. TECHNIQUE: 2D digital imaging was performed. COMPARISON: No exams were available for comparison FINDINGS: There is no evidence of pelvic nor hip fracture. No obvious degenerative changes in either hip. No joint space narrowing. No osteophytes. Sacroiliac joints appear unremarkable. There is symmetrical increased density on both sides of the symphysis pubis. No lytic osseous lesions. IMPRESSION: DATA REPOSITORY: RADIATION DOSE DELIVERED:
== END 2021-04-22 02:26 ==
PROVIDERS: PCP Nurse Practitioner Family; Visit Provider Nurse Practitioner Family
DX: M25.551 Pain in right hip (principal); M25.552 Pain in left hip
CPT/HCPCS: 73521

== ENCOUNTER 2021-05-08 03:00 | Outpatient (CLI) | payer MEDICARE, OTHER, SELFPAY ==
[2021-05-08 11:23] LABS: Source Nasal/Nares
[2021-05-08 14:28] LABS: COVID-19 PCR Negative (Negative)
== END 2021-05-08 03:01 | disposition home or self-care (01) ==
LOC: LBO 03:00
PROVIDERS: PCP Nurse Practitioner Family; Visit Provider Surgery
DX: Z20.822 Contact with and (suspected) exposure to COVID-19 (principal); Z01.818 Encounter for other preprocedural examination
CPT/HCPCS: 87635

== ENCOUNTER 2021-05-10 06:13 | Day surgery (SDC) | payer MEDICARE, OTHER, SELFPAY ==
[2021-05-10 06:36] VITALS: BP 131/71; PULSE 58; RESP 16; TEMP 36.7; O2SAT 96
--- NOTE | 2021-05-10 07:10 | W.ANESPRE ---
General Info Date of Service Date Performed: 05/10/21 Height: 5 ft 5 in Weight: 84.4 kg Body Mass Index (BMI): 30.9 Surgical Procedure: Operation Date: 05/10/21 07:35 Proposed Procedures Side Surgeon p Gastroscopy Yesenia Kumar, DO Meds Allergies and Home Medications Allergies Allergy/AdvReac Type Severity Reaction Status Date / Time No Known Allergies Allergy Verified 05/07/21 15:17 Home Medication Medication Instructions Recorded lisinopril 40 mg PO DAILY 11/23/14 omega-3 fatty acids 1,000 mg 1,000 mg PO DAILY 08/17/18 capsule ergocalciferol (vitamin D2) 50,000 unit PO DAILY 08/20/18 [Vitamin D2] potassium 99 mg PO DAILY 08/20/18 famotidine 40 mg tablet 40 mg PO BID #60 tab 11/08/19 amlodipine 10 mg tablet 10 mg PO DAILY 11/20/20 fluoxetine 10 mg capsule 10 mg PO DAILY 11/20/20 omeprazole 20 mg capsule,delayed 20 mg PO DAILY PRN 11/20/20 release simvastatin 20 mg PO DAILY 03/06/21 acetaminophen [Tylenol Arthritis] 650 mg PO Q8H PRN 05/10/21 Current Visit Medications: Current Medications Generic Name Dose Route Start Last Admin Trade Name Freq PRN Reason Stop Dose Admin Ringer's Solution 1,000 mls @ 80 mls/hr 05/10/21 06:00 IV 06/08/21 23:59 INFUSION ROHINI IV Miscellaneous Supplies 1 each 05/10/21 06:00 Iv Access IV 06/08/21 23:59 DIRECTED ROHINI Sodium Chloride 0 ml 05/10/21 06:00 Normal Saline Flush 10 Ml Syr IV 06/08/21 23:59 PRN PRN Sodium Chloride 0 ml 05/10/21 06:00 Normal Saline 10 Ml Vial IJ 06/08/21 23:59 DIRECTED PRN Sterile Water 0 ml 05/10/21 06:00 Water,Injection,Sterile 10 Ml Vial IJ 06/08/21 23:59 DIRECTED PRN PFSH Active Problems Active Problems: Problem Status Onset Code ROB (obstructive sleep apnea) G47.33 Gallstone pancreatitis 11/23/14 K85.1 Hypertension I10 H/O surgical procedure Z98.89 Sensorineural hearing loss, bilateral 02/26/17 H90.3 Breath shortness R06.02 Bradycardia R00.1 Back pain M54.9 Mass of stomach K31.89 Esophagitis determined by endoscopy K20.9 Gastritis K29.70 History of esophagogastroduodenoscopy (EGD) ~08/24/18 Z98.890 Medical History Medical History Actinic skin damage Altered consciousness Aphasia ASCVD (arteriosclerotic cardiovascular disease) pt. denies this BCC (basal cell carcinoma) Bilateral leg cramps Chronic left hip pain Cold intolerance Confusion Dermatitis of ear canal Dyspepsia Dysphagia Ear pain, right Esophagitis determined by endoscopy Essential hypertension Family history of skin cancer Gastritis History of depression Hypomagnesemia Hyponatremia Left hip pain Obesity ROB (obstructive sleep apnea) Pain, joint, knee, left Pancreatitis Periodic limb movement disorder Preventative health care Pulmonary nodule Skin nodule Thoracic back pain Surgical History Surgical History History of esophagogastroduodenoscopy (EGD) (~08/24/18) Hx of cholecystectomy Tobacco Smoking/Tobacco Use Status: Never Alcohol Alcohol Intake: current Alcohol intake frequency: a few times a month Substance Use Substance use: Never Substance use type: does not use Vital Signs and Lab Results Vital Signs Most Recent Vital Signs in EMR: Most Recent Vital Signs Temp Pulse Resp BP Pulse Ox 36.7 C 58 L 16 131/71 96 05/10/21 06:36 05/10/21 06:36 05/10/21 06:36 05/10/21 06:36 05/10/21 06:36 Lab Results Blood Type / Crossmatch: No Data to Display Complete Blood Count: No Data to Display Complete Metabolic Panel: No Data to Display Liver Function Panel: No Data to Display Coagulation Panel: No Data to Display Cardiac Panel: No Data to Display Arterial Blood Gas: No Data to Display Venous Blood Gas: No Data to Display Pancreas Panel: No Data to Display Thyroid Panel: No Data to Display Infectious Disease: Coronavirus (COVID-19)(PCR) Negative (Negative) 05/08/21 10:28 05/08/21 Coronavirus 2019 Source Nasal/Nares 05/08/21 10:28 05/08/21 Blood Cultures: No Data to Display Toxicology Panel: No Data to Display Anesthesia Assessment and Plan Anesthesia History Personal History: No History of Anesthesia Complications Family History: No Family History of Anesthesia Complications Exercise Tolerance Exercise Tolerance: Metabolic Equivalents<4 Pertinent Negatives Pertinent Negatives: No Symptoms of GERD Cardiac & Pulmonary Exam Cardiac Exam: Normal S1/S2 Heart Sounds Pulmonary Exam: Clear Bilateral Breath Sounds Cardiac and Pulmonary Comment:: All cardiac screening normal. See chart Airway Exam Known Difficult Airway: No Mallampati Class: 3 Mouth Opening: Normal (> 3cm) Thyromental Distance: Greater than 3 cm Neck Range of Motion: Full ROM Neck Circumference: Normal Teeth Condition: Normal Dentition Airway Comments: ROB ASA Classification ASA Score: ASA 2 Emergency Case?: No NPO Status NPO Status: NPO Clears >2 hours, Solids >8 hours Anesthesia Plan Resuscitation Status: Full Code Anesthesia Technique: General Anesthesia Airway Planned: Natural Airway Monitors Used: Standard Monitors
[2021-05-10] MEDS: Lactated Ringers 1,000 ML 80 ML IV (07:11)
[2021-05-10 07:12] VITALS: BMI 30.9
--- NOTE | 2021-05-10 07:53 | STOM_PTH ---
PATIENT: Geovanna Montesinos LOC: DEB U#:[id number] AGE/SX: 75/F ROOM: RE05/10/[address]: Yesenia Kumar : 1945 BED: DIS: 05/10/2021 SPEC #: [id number] RECD: 05/10/21 12:53 STATUS: JAN REHafsa #: [id number] SHERRY: 05/10/21 07:[address]: Yesenia Kumar DEPT: Surgical Specimen RECD BY: Ольга Parham ENTERED: 05/10/21 12:55 SP TYPE: STOMACH OTHR DR: Meka Hadley Tissues: 1 - BIOPSY BOWEL 2 - BIOPSY BOWEL 3 - STOMACH BIOPSY 4 - STOMACH BIOPSY 5 - ESOPHAGUS BIOPSY 6 - ESOPHAGUS BIOPSY Procedures: GROSS AND MICRO LEVEL 4 Comments: [id number]
[2021-05-10 08:10] VITALS: BP 117/59; PULSE 55; RESP 14; TEMP 36.4; O2SAT 95
--- NOTE | 2021-05-10 08:14 | W.ANESPOSTOP ---
Postoperative Evaluation Date, Time and Location Date Performed: 05/10/21 Time Performed: 08:14 Patient Location: Day Surgery Unit Vital Signs Most Recent Imported Vital Signs: Most Recent Vital Signs Temp Pulse Resp BP Pulse Ox 36.7 C 58 L 16 131/71 96 05/10/21 06:36 05/10/21 06:36 05/10/21 06:36 05/10/21 06:36 05/10/21 06:36 Most Recent Manually Entered Vital Signs: Adult Blood Pressure: 117/59 Heart Rate: 55 Respirations: 14 Oxygen Saturation (%): 95 Temperature (C): 36.4 C Pain Score (0-10 Scale): 0 Pain Score Most Recent Pain Score: Most Recent Pain Score Pain Level 0 05/10/21 06:36 Assessment Mental Status: Arousable with meaningful communication Airway and Respiratory Function: Patent airway with normal (patient baseline) respiratory exam Cardiovascular Function: Hemodynamically Stable Hydration Status: Adequately Hydrated Nausea & Vomiting: No Nausea or Vomiting Pain: Pt. Denies Any Pain Peripheral Nerve Block: Patient did not receive a nerve block
[2021-05-10 08:15] VITALS: BP 117/59; PULSE 55; RESP 14; TEMPC 36.4; O2SAT 95
--- NOTE | 2021-05-10 08:23 | W.PM.ENDDOP ---
Date of service: 05/10/21 Time of Service: 08:23 Endoscopy Report DATE OF PROCEDURE: 05/10/21 PRE-OP DIAGNOSIS: abnl CT/GERD POST-OP DIAGNOSIS: other (bile reflux gastritis/GERD/hiatal hernia/esophagitis w/ ulceration) SURGEON: Yesenia Kumar ANESTHESIA TYPE: General:No Airway ESTIMATED BLOOD LOSS: 1 PATHOLOGY: other COMPLICATIONS: None PROCEDURE DESCRIPTION: After informed consent was obtained the patient was take to the procedure room and placed in a supine position. Monitors were applied and a time out was done. The patients name, date of , procedure type, allergies to medications and metal in their body was reviewed. A bite block was placed and the patient was sedated. Once sedated and comfortable the gastroscope was advanced through the oropharynx which was grossly normal into the esophagus. The proximal and mid-esophagus were nl. In the distal esophagus there was : hiatal hernia/esophagitis w/ ulcersation (no active bleeding). She has bile reflux noted up to the level of the esophagus. The scope was advanced into the stomach and through the pylorus into the 3rd portion of the duodenum. The duodenum was noted to be normal. Biopsies were done, all specimens are retrieved and no bleeding is noted. The scope was retracted back into the stomach and biopsies were done to rule out H. pylori. There were no ulcers. Mild gastritis throughout the entirety of the stomach and in a striped fashion. There is no bledding. The scope was retroflexed. The cardia and fundus were noted to be normal. There 2cm a hiatal hernia noted. The scope was retracted back into the esophagus and biopsies were done of the GE junction to rule out Vaughan's. The Z line was irregular under NBI. Multiple biopsies are taken at the GE junction. There is the scope was removed and the patient was woken up and taken back to [facility] in stable condition. Needs to be started on a PPI and carafate. lifestyle changes.
--- NOTE | 2021-05-10 08:28 | PDOC.DSDIS_ITS ---
Discharge Plan Disposition Patient Disposition: HOME Condition: Good Discharge Details Reason For Visit: stomach scope Attending Provider: Yesenia Kumar Primary Care Provider: Meka Hadley Home Meds and New Rx's Prescriptions: New pantoprazole [Protonix] 40 mg tablet,delayed release (DR/EC) 40 mg PO DAILY Qty: 30 RF: 12 sucralfate [Carafate] 1 gram tablet 1 g PO QACHS Qty: 120 RF: 12 Discontinued famotidine 40 mg tablet 40 mg PO BID Qty: 60 RF: 5 omeprazole 20 mg capsule,delayed release(DR/EC) 20 mg PO DAILY PRNRF: 0 No Action omega-3 fatty acids [Fish Oil Concentrate] 1,000 mg capsule 1,000 mg PO DAILY RF: 0 amlodipine [Norvasc] 10 mg tablet 10 mg PO DAILY RF: 0 fluoxetine [Prozac] 10 mg capsule 10 mg PO DAILY RF: 0 lisinopril 40 MG tablet 40 mg PO DAILY RF: 0 potassium 99 mg Tablet 99 mg PO DAILY RF: 0 ergocalciferol (vitamin D2) [Vitamin D2] 50,000 unit Capsule 50,000 unit PO DAILY RF: 0 acetaminophen [Tylenol Arthritis] 650 mg Tablet Extended Release 650 mg PO Q8H PRNRF: 0 simvastatin 20 mg tablet 20 mg PO DAILY RF: 0 Discharge Instructions Instructions: GERD (Gastroesophageal Reflux Disease) (GEN) Additional Instructions: DSU Colonoscopy Post- Op Instructions Instructions for Everyone who is given Anesthesia: For your safety, please do the following for the next twenty-four (24) hours: *Do Not operate a motor vehicle (car, truck, motorcycle, etc.) *Do Not drink alcoholic beverages or use any recreational drugs for the first 24 hours or while taking pain medications. The medications in your body may have a reaction that can be dangerous. *Do Not make any important decisions or sign any important papers. Findings: Bile reflux gastritis GERD hiatal hernia/paraesophageal esophagitis w/ ulceration -Continue with lifestyle modifications: no alcohol, tobacco products, Aspirin or NSAID's (ibuprofen, Motrin, Naprosyn, aleve, etc), soda pop/any carbonated beverages, caffeine (including tea & chocolate). Try to limit: acidic foods, (tomatoes, citrus, onions, peppermints) spicy or fried/fatty foods. Do not lie down for 30 minutes after eating, and do not eat 2 hours prior to bedtime. Avoid wearing tight fitting clothing/ belts -take Protonix every day -take carafate 4x a day for 6wks. Than transition to at bedtime and as needed for heartburn signs and symptoms. Follow up: F/u in 2-3 wks 1. No lifting over 20 pounds or strenuous activity for the first 24 hours after your procedure. After 24 hours there are no restrictions on your activity but you may feel fatigued for a few days. 2. After you arrive home you may have a light meal and return to your normal diet as you can tolerate it without feeling sick to your stomach. 3. You may have a bloated, gaseous feeling in your belly (abdomen) after a colonoscopy. Passing gas and belching will help. Walking or lying down on your left side with your knees flexed may relieve the discomfort. Call the office at [phone] (Office) or [phone] (Hospital) right away if you notice any of the following: a.Vomiting of blood or ?coffee ground stools?. b.Rectal bleeding 1Tbsp, blood clots or continuous bleeding. c.Severe belly (abdominal) pain. d.A hard distended belly (abdomen) and an inability to pass gas. 4. Please don?t expect to have a normal BM (bowel movement) for 2-3 days after your procedure. 5. If there are questions regarding the findings of your procedure, please contact your doctor 6. If you are unable to contact your doctor with a problem, contact the hospital at [phone]. 7. Continue all your regular medications unless directed otherwise. I understand the above instructions and have no questions. Signature of Patient or Adult Escort Name of Responsible Adult Escort Signature of Nurse Date/Time Stand Alone Forms: Anesthesia Discharge Inst., DSU Post EGD Instructions, Elvin Mueller (DSU) Activity:: see above Diet:: see above Discharge Orders Discharge Orders: Discharge Order (Routine); Ordered 05/10/21 Ordered By: Yesenia Kumar DS: Diagnosis Discharge Diagnosis (1) ROB (obstructive sleep apnea): Status: Chronic (2) Hypertension: Status: Chronic (3) Esophagitis determined by endoscopy: Status: Acute (4) Gastritis: Status: Acute (5) Hiatal hernia with gastroesophageal reflux disease and esophagitis: Status: Acute
[2021-05-10 08:43] VITALS: BP 130/69; PULSE 64; RESP 16; TEMP 36.2; O2SAT 99
== END 2021-05-10 09:43 | disposition home or self-care (01) ==
PROVIDERS: PCP Nurse Practitioner Family; Visit Provider Surgery
PROC: 0DJ68ZZ Inspection of Stomach, Via Natural or Artificial Opening Endoscopic (ICD-10-PCS; CPT 43235; principal; 2021-05-10 07:30)
DX: K22.10 Ulcer of esophagus without bleeding (principal); K21.00 Gastro-esophageal reflux disease with esophagitis, without bleeding; K44.9 Diaphragmatic hernia without obstruction or gangrene; K29.70 Gastritis, unspecified, without bleeding; G47.33 Obstructive sleep apnea (adult) (pediatric); I10 Essential (primary) hypertension; K31.89 Other diseases of stomach and duodenum
CPT/HCPCS: 43239; 88305; J2704

== ENCOUNTER 2021-05-15 15:52 | Outpatient (CLI) | payer MEDICARE, OTHER, SELFPAY ==
--- NOTE | 2021-05-15 08:56 | DI.RAD_ITS ---
Exam(s) XR KNEE RT 3V AP,LAT,SHARON EXAM: XR KNEE RT 3V AP,LAT,SHARON CLINICAL HISTORY: rt knee pain, m25.561. TECHNIQUE: 2D digital imaging was performed. COMPARISON: No exams were available for comparison FINDINGS: No evidence of fracture nor prominent joint effusion. There are moderate degenerative changes in the medial lateral compartments including chondrocalcinosis. Significant narrowing and osteophytes in t he patellofemoral compartment noted. Bone density is age-appropriate. No ominous osseous lesions. IMPRESSION: Moderate osteoarthritic degenerative changes. Findings are similar to the opposite-left knee. DATA REPOSITORY: RADIATION DOSE DELIVERED:
--- NOTE | 2021-05-15 08:56 | DI.RAD_ITS ---
Exam(s) XR KNEE LT 3V AP,LAT,SHARON EXAM: XR KNEE LT 3V AP,LAT,SHARON CLINICAL HISTORY: LT KNEE PAIN, M25.562. TECHNIQUE: 2D digital imaging was performed. COMPARISON: There is no evidence of fracture or obvious joint effusion. There are moderate tricompa rtmental degenerative changes. No osseous lesions. Degenerative subarticular cysts in the mid tibia l plateau sub spinous region noted. FINDINGS: Moderate osteoarthritic degenerative changes. IMPRESSION: DATA REPOSITORY: RADIATION DOSE DELIVERED:
== END 2021-05-15 16:12 ==
PROVIDERS: PCP Nurse Practitioner Family; Visit Provider Nurse Practitioner Family
DX: M17.0 Bilateral primary osteoarthritis of knee (principal)
CPT/HCPCS: 73562

== ENCOUNTER → 2021-05-30 08:45 | Outpatient (BNVA) | payer MEDICARE, OTHER, SELFPAY | PROVIDERS: PCP Nurse Practitioner Family; Referring Provider Nurse Practitioner Family; Visit Provider Surgery | DX: Z48.815 Encounter for surgical aftercare following surgery on the digestive system (principal); K21.9 Gastro-esophageal reflux disease without esophagitis | CPT/HCPCS: 99213 ==

== ENCOUNTER 2021-07-10 02:48 | Outpatient (CLI) | payer MEDICARE, OTHER, SELFPAY ==
[2021-07-10 15:58] LABS: Anion Gap 4.8 mmol/L (3-11); BUN 16 mg/dL (7-18); CO2 29.2 mmol/L (21.0-32.0); CREATININE 0.9 mg/dL (0.55-1.02); Calcium 9.1 mg/dL (8.5-10.1); Chloride 104 mmol/L (98-107); Glucose 103 mg/dL (74-106); Potassium 4.4 mmol/L (3.5-5.1); Sodium 138 mmol/L (136-145); TSH 1.19 uIU/mL (0.36-3.74)
[2021-07-11 10:45] LABS: Parathyroid Hormone,Intact 56 pg/mL (19-88)
[2021-07-12 10:04] LABS: Calcitonin 228 pg/mL (<=7.6)
[2021-07-15 12:07] LABS: Metanephrine, Free <0.20 nmol/L (<0.50); Normetanephrine, Free 0.69 nmol/L (<0.90)
== END 2021-07-10 02:49 | disposition home or self-care (01) ==
LOC: LBO 02:49
PROVIDERS: PCP Nurse Practitioner Family; Visit Provider Surgery
DX: Z15.89 Genetic susceptibility to other disease; Z15.81 Genetic susceptibility to multiple endocrine neoplasia [MEN]; Z15.09 Genetic susceptibility to other malignant neoplasm; E07.89 Other specified disorders of thyroid
CPT/HCPCS: 36415; 80048; 82308; 83835; 83970; 84443

== ENCOUNTER 2021-09-02 00:22 | Outpatient (CLI) | payer MEDICARE, OTHER, SELFPAY ==
--- NOTE | 2021-09-02 11:30 | DI.MAMMO_ITS ---
Exam(s) MAMMO SCREENING EXAM: MAMMO SCREENING CLINICAL HISTORY: SCREENING EXAM FOR BREAST CANCER Z12.39 TECHNIQUE: Bilateral full field digital CC and MLO mammographic images were obtained with 3D tomosyn thesis and utilizing computer aided detection (CAD). COMPARISON: Available for comparison. FINDINGS: Masses/Architectural Distortion: None seen. Microcalcifications: No suspicious pleomorphic-type are seen. Skin Thickening/Nipple Retraction: None. IMPRESSION: 1. No significant interval change with no specific features of malignancy noted. 2. Unless there is more urgent need, screening mammography is recommended, as per [employer] [employer] guidelines. BI-RADS Category 1 - Negative Breast Density - Category B - Scattered areas of fibroglandular density Breast density category C or D implies that the patient has dense breast tissue. Dense breast tissue is very common and is not abnormal but dense breast tissue can make it harder to find cancer on a ma mmogram. Also, dense breast tissue may increase their breast cancer risk. This information about the result of the mammogram report was provided to the patient to raise their awareness. Use this report when you speak with the patient about their risks for breast cancer, which includes their family hist ory. At that time, you may recommend for more screening tests (Ultrasound or MRI) as they might be us eful based on their risk. A negative radiographic report should not delay biopsy if a dominant or clinically suspicious mass is present. Up to ten percent of cancers are not identified on mammography. A negative report may reinforce clinical impression. Adenosis and dense breasts may obscure an underlying neoplasm. False positive reports average 6 to 10%. Patient will receive a letter notifying them of these results.
== END 2021-09-02 00:42 ==
PROVIDERS: PCP Nurse Practitioner Family; Visit Provider Nurse Practitioner Family
DX: Z12.31 Encounter for screening mammogram for malignant neoplasm of breast (principal)
CPT/HCPCS: 77063; 77067

== ENCOUNTER 2021-09-04 02:48 | Outpatient (CLI) | payer MEDICARE, OTHER, SELFPAY ==
[2021-09-05 19:50] LABS: CEA 3.3 ng/mL (See Note)
== END 2021-09-04 02:49 | disposition home or self-care (01) ==
LOC: LBO 02:48
PROVIDERS: PCP Nurse Practitioner Family; Visit Provider Surgery
DX: E31.22 Multiple endocrine neoplasia [MEN] type IIA (principal); C7B.8 Other secondary neuroendocrine tumors
CPT/HCPCS: 36415; 82378

== ENCOUNTER 2021-11-04 01:53 | Outpatient (CLI) | payer MEDICARE, SELFPAY ==
--- NOTE | 2021-11-04 13:45 | DI.CT_ITS ---
Exam(s) CT CHEST WO EXAM: CT CHEST WO CLINICAL HISTORY: PULMONARY NODULE, J98.4 TECHNIQUE: Imaging Protocol: Axial computed tomography images with coronal and sagittal reformatted images were created and reviewed CONTRAST MATERIAL: Intravenous: Omnipaque 350 Contrast volume:structured data in ml. COMPARISON: CT CT CHEST PE CTA from 03/06/2021 FINDINGS: Tracheobronchial tree: No bronchiectasis or mucous plugging. Mediastinum and Alexus: No dominant adenopathy or fluid collection. Pulmonary parenchyma: Stable 5 millimeter nodule peripheral left upper lobe. Stable 5 millimeter nod ule in the lateral right lower lobe adjacent to the fissure. Decreased prominence of a posterior rig ht lower lobe nodule, now 3 x 4 millimeters, likely secondary to better pulmonary inflation on the c urrent exam. No consolidation or dominant measurable mass. Pleura: No effusion or pneumothorax. Heart: The heart is mildly dilated. Mild coronary artery calcifications are seen. Aorta: Thoracic aorta non-dilated. Calcification at arch. Upper abdomen: Unremarkable. Status post cholecystectomy. Stent right renal artery. Lymph nodes: Within normal limits. Bones: Normal. Soft tissues: Unremarkable. IMPRESSION: Stable small pulmonary nodules. No suspicious findings. For low risk patient, no further follow-up is recommended. For a high-risk patient, a low-dose chest CT is recommended in 12 months. RADIATION DOSE DELIVERED: 479.54mGy.cm Total DLP DATA REPOSITORY: All CT scans at this facility are submitted to the National Radiology Data Registry (NRDR) Dose Index Registry (DIR) with the [employer] (ACR). RADIATION OPTIMIZATION: All CT scans at this facility use at least one of these dose optimization te chniques: automated exposure control; mA and/or kV adjustment per patient size (includes targeted exa ms where dose is matched to clinical indication); or iterative reconstruction.
== END 2021-11-04 02:13 ==
PROVIDERS: PCP Nurse Practitioner Family; Visit Provider Nurse Practitioner Family
DX: R91.1 Solitary pulmonary nodule (principal)
CPT/HCPCS: 71250

== ENCOUNTER 2021-12-19 12:22 | Outpatient (REF) | payer MEDICARE, SELFPAY ==
[2021-12-19 21:35] LABS: ALT 23 U/L (14-59); AST 14 U/L (15-37); Albumin 3.3 g/dL (3.4-5.0); Alkaline Phosphatase 71 U/L (46-116); Anion Gap 3.8 mmol/L (3-11); BUN 14 mg/dL (7-18); Bilirubin, Total 0.4 mg/dL (0.2-1.0); CO2 28.2 mmol/L (21.0-32.0); CREATININE 0.9 mg/dL (0.55-1.02); Calcium 7.8 mg/dL (8.5-10.1); Chloride 99 mmol/L (98-107); Glucose 75 mg/dL (74-106); Magnesium 1.8 mg/dL (1.8-2.4); Sodium 131 mmol/L (136-145); TSH (W/Ref FT4) 0.05 uIU/mL (0.36-3.74); Total Protein 6.3 g/dL (6.4-8.2); Vitamin B12 362 pg/mL (193-986)
== END 2021-12-19 12:23 | disposition home or self-care (01) ==
LOC: NCHCN 12:22
PROVIDERS: PCP Nurse Practitioner Family; Visit Provider Nurse Practitioner Family
DX: I10 Essential (primary) hypertension (principal); E03.9 Hypothyroidism, unspecified; E83.42 Hypomagnesemia
CPT/HCPCS: 80053; 82607; 83735; 84439; 84443

== ENCOUNTER 2021-12-26 13:28 | Outpatient (REF) | payer MEDICARE, SELFPAY ==
[2021-12-26 21:15] LABS: Sodium 140 mmol/L (136-145)
== END 2021-12-26 13:29 | disposition home or self-care (01) ==
LOC: NCHCN 13:28
PROVIDERS: PCP Nurse Practitioner Family; Visit Provider Nurse Practitioner Family
DX: E87.1 Hypo-osmolality and hyponatremia (principal)
CPT/HCPCS: 84295

== ENCOUNTER 2022-02-04 16:31 | Outpatient (REF) | payer MEDICARE, SELFPAY ==
--- OUTSIDE RECORDS SUMMARY | 2022-02-04 16:34 | XMS_ITS ---
:1945 Author Care Team Providers Name Role Phone ZEFERINO Cabrera [employer]TER Primary Care Provider [phone] MANJEET GOLDEN MD Neurologist [phone] Allergies Code Code System Name Reaction Severity Status Onset NKDA ? Medications Name Status Start Date Stop Date ? ? amlodipine 10 mg tablet Active ? Not avai lable TAKE ONE TABLET BY MOUTH EVERY DAY amoxicillin 875 mg-potassium Completed ? 05/2019 clavulanate 125 mg tablet Boostrix Tdap 2.5 Lf unit-8 mcg-5 Active ? Not available Lf/0.5 mL intramuscular syringe famotidine 20 mg tablet Completed ? 03/02/20 19 Take 2 tablets every day by oral route. famotidine 40 mg tablet Active ? Not avai lable TAKE ONE TABLET BY MOUTH TWICE A DAY Fish Oil Active ? Not available 1000 mg twice a day Fluzone High-Dose Quad 2020-21 (PF) 240 mcg/0.7 mL IM syringe Ac tive ? Not available ADM 0.7ML IM UTD hydrochlorothiazide 12.5 mg tablet Completed ? 03/02/2019 ibuprofen 800 mg tablet Completed ? 03/02/20 19 lisinopril 40 mg tablet Active ? Not avai lable TAKE ONE TABLET BY MOUTH EVERY DAY meloxicam 15 mg tablet Completed ? 9 metoprolol tartrate 25 mg tablet Active ? Not available TAKE ONE TABLET BY MOUTH TWICE A DAY omeprazole 20 mg capsule,delayed release Active ? Not available TAKE ONE CAPSULE BY MOUTH EVERY DAY FOR 2 WEEKS THEN ONCE DAILY NEEDED omeprazole 40 mg capsule,delayed release Completed ? 03/02/2019 Take 1 capsule every day by oral route. potassium gluconate 595 mg (99 mg) tablet Active ? Not available Take 1 tablet every day by oral route. Tylenol Arthritis Pain 650 mg tablet,extended release Active ? Not available Take 1 tablet twice a day by oral route. Vitamin D Completed ? 03/02/2019 Vitamin D2 1,250 mcg (50,000 unit) capsule Active ? Not available TAKE 1 CAPSULE BY MOUTH ONCE WEEKLY Problems Name Status Onset Date Source ? 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 Hypomagnesemia Active ? ? Hyponatremia Active ? ? Obesity Active ? ? Leukocytosis Active ? ? Obstructive Sleep Apnea Syndrome Active ? ? Hypertensive Disorder Active ? ? Indigestion Active ? ? Pancreatitis Active ? ? Hip Pain Active ? ? Cramp in Lower Limb Active ? ? Intolerant of Cold Active ? ? Skin Nodule Active ? ? Dysphagia Active ? ? Menopause Active ? ? Procedures None recorded. Results Lab Results None recorded. Past Encounters 10/25/2020 Obstructive Sleep Apnea Syndrome; Psycho physiologic Insomnia Jill Page [employer]: [address] [place] [phone], Ph. Social History Tobacco Smoking Status Former Smoker Notes: 20, 1 p pd. quit 1973 Vaccine List None recorded. Plan of Care Reminders Provider Appointments None ? ? recorded. Lab None ? ? recorded. Referral None ? ? recorded. Procedures None ? ? recorded. Surgeries None ? ? recorded. Imaging None ? ? recorded. Vitals 10/25/2020 11:15AM Office 30 Height Weight BMI 163.83 cm 87.09 kg 32.4 kg/m2 10/27/2019 08:00AM Office 30 Height Weight BMI Blood Pressure 163.83 cm 87.09 kg 32.4 kg/m2 124/68 mm[Hg] 05/25/2019 10:30AM Office 30 Height Weight BMI Blood Pressure 163.83 cm 83.91 kg 31.3 kg/m2 128/66 mm[Hg] 03/02/2019 12:30PM New Patient 47 Height Weight BMI Blood Pressure 163.83 cm 84.1 kg 31.3 kg/m2 138/74 mm[Hg]
[2022-02-04 20:56] LABS: TSH 0.01 uIU/mL (0.36-3.74)
== END 2022-02-04 16:32 | disposition home or self-care (01) ==
LOC: NCHCN 16:31
PROVIDERS: PCP Nurse Practitioner Family; Visit Provider Nurse Practitioner Family
DX: E03.9 Hypothyroidism, unspecified (principal)
CPT/HCPCS: 84443

== ENCOUNTER 2022-03-20 09:12 | Outpatient (REF) | payer MEDICARE, SELFPAY ==
[2022-03-20 14:38] LABS: TSH (W/Ref FT4) 0.19 uIU/mL (0.36-3.74)
[2022-03-20 15:02] LABS: FREE T4 1.57 ng/dL (0.76-1.46)
== END 2022-03-20 09:13 | disposition home or self-care (01) ==
LOC: NCHCN 09:12
PROVIDERS: PCP Nurse Practitioner Family; Visit Provider Nurse Practitioner Family
DX: E03.9 Hypothyroidism, unspecified (principal)
CPT/HCPCS: 84439; 84443

== ENCOUNTER 2022-04-15 18:58 | Outpatient (REF) | payer MEDICARE, SELFPAY ==
[2022-04-15 15:24] LABS: Absolute Basophil Count 0.03 10^3/uL (0.0-0.2); Absolute Lymphocyte Count 1.92 10^3/uL (1.2-3.4); Absolute Monocyte Count 0.58 10^3/uL (0.1-0.8); Absolute Neutrophil Count 7.02 10^3/uL (1.2-6.7); Basophils % 0.3; HCT 38.9 % (36.0-46.0); HGB 12.7 g/dL (11.2-15.7); Lymphocytes % 19.7; MCH 28.9 pg (27.0-33.0); MCHC 32.6 % (32.0-36.0); MCV 88 fL (80-95); MPV 8.8 fL (8.0-11.0); Monocytes % 5.9; Neutrophils % 72.1; Platelet Count 366 10^3/uL (130-400); RDW 13.1 % (11.7-14.6); RDW-SD 42.5 fL; WBC 9.75 10^3/uL (4.4-10.8)
[2022-04-15 15:31] LABS: ESR 18 mm/hr (0-30)
[2022-04-15 15:48] LABS: ALT 24 U/L (14-59); AST 17 U/L (15-37); Albumin 3.5 g/dL (3.4-5.0); Alkaline Phosphatase 68 U/L (46-116); BUN 13 mg/dL (7-18); Bilirubin, Total 0.4 mg/dL (0.2-1.0); C-Reactive Protein 0.61 mg/dL (0.0-0.3); CREATININE 0.8 mg/dL (0.55-1.02); Calcium 8.1 mg/dL (8.5-10.1); Chloride 97 mmol/L (98-107); Glucose 90 mg/dL (74-106); Magnesium 1.8 mg/dL (1.8-2.4); Potassium 4.1 mmol/L (3.5-5.1); Sodium 133 mmol/L (136-145); Total Protein 6.5 g/dL (6.4-8.2)
[2022-04-15 16:38] LABS: Vitamin B12 626 pg/mL (193-986)
[2022-04-15 22:19] LABS: Rheumatoid Factor <8.6 IU/mL (<12.0)
[2022-04-16 13:53] LABS: ANA Interpretation Negative (Negative)
[2022-04-17 12:42] LABS: SS-A Antibody 2.2 Units (<20.0); SS-B (La) Ab, IgG 2.1 Units (<20.0)
== END 2022-04-15 18:59 | disposition home or self-care (01) ==
LOC: NCHCN 18:58
PROVIDERS: PCP Nurse Practitioner Family; Visit Provider Nurse Practitioner Family
DX: R30.0 Dysuria (principal)
CPT/HCPCS: 80053; 85652; 82607; 83735; 85025; 86038; 86140; 86235; 86431; 87086

== ENCOUNTER 2022-04-17 13:45 | Outpatient (REF) | payer MEDICARE, SELFPAY ==
[2022-04-23 00:22] LABS: Metanephrines, U 38 mcg/24 h; Normetanephrine, U 242 mcg/24 h; Total Metanephrines, U 280 mcg/24 h; Urine Volume 2525 mL
== END 2022-04-17 13:46 | disposition home or self-care (01) ==
LOC: NCHCN 13:45
PROVIDERS: PCP Nurse Practitioner Family; Visit Provider Nurse Practitioner Family
DX: R68.2 Dry mouth, unspecified (principal)
CPT/HCPCS: 81050; 83835

== ENCOUNTER 2022-05-06 18:45 | Outpatient (REF) | payer MEDICARE, SELFPAY ==
[2022-05-06 20:29] LABS: TSH (W/Ref FT4) 0.17 uIU/mL (0.36-3.74)
[2022-05-06 21:04] LABS: FREE T4 1.49 ng/dL (0.76-1.46)
== END 2022-05-06 18:46 | disposition home or self-care (01) ==
LOC: NCHCN 18:45
PROVIDERS: PCP Nurse Practitioner Family; Visit Provider Nurse Practitioner Family
DX: E03.9 Hypothyroidism, unspecified (principal)
CPT/HCPCS: 84439; 84443

== ENCOUNTER 2022-06-25 09:15 | Outpatient (REF) | payer MEDICARE, SELFPAY ==
[2022-06-25 18:01] LABS: TSH (W/Ref FT4) 1.42 uIU/mL (0.36-3.74)
== END 2022-06-25 09:16 | disposition home or self-care (01) ==
LOC: NCHCN 09:15
PROVIDERS: PCP Nurse Practitioner Family; Visit Provider Nurse Practitioner Family
DX: E03.9 Hypothyroidism, unspecified (principal)
CPT/HCPCS: 84443

== ENCOUNTER 2022-08-19 15:00 | Outpatient (REF) | payer MEDICARE, SELFPAY | END 2022-08-19 15:01 | disposition home or self-care (01) | LOC: NCHCN 15:00 | PROVIDERS: PCP Nurse Practitioner Family; Visit Provider Nurse Practitioner Family | DX: R30.0 Dysuria (principal); L29.2 Pruritus vulvae | CPT/HCPCS: 87086; 87480; 87510; 87660 ==

== ENCOUNTER → 2022-09-08 03:16 | Outpatient (CLI) | payer MEDICARE, SELFPAY ==
--- NOTE | 2022-09-08 08:45 | DI.MAMMO_ITS ---
Exam(s) MAMMO SCREENING EXAM: MAMMO SCREENING CLINICAL HISTORY: SCREENING, Z12.39 TECHNIQUE: Mammograms were interpreted according to the usual protocol including computer analysis w [employer] CAD system, tomosynthesis and C-view imaging. COMPARISON: 2013 through 2020 FINDINGS: The breasts are composed of scattered fibroglandular densities, Breast Density category B. No suspicious masses or suspicious microcalcifications are seen. No skin thickening or abnormal axillary lymph nodes are seen. There has been no significant change from prior exams. IMPRESSION: BI-RADS Category 1, Negative mammogram Yearly screening mammography is recommended. Breast Density - Category B, scattered fibroglandular densities. A negative radiographic report should not delay biopsy if a dominant or clinically suspicious mass is present. Up to ten percent of cancers are not identified on mammography. A negative report may reinforce clinical impression. Adenosis and dense breasts may obscure an underlying neoplasm. False positive reports average 6 to 10%. Patient will receive a letter notifying them of these results.
== END ==
PROVIDERS: PCP Nurse Practitioner Family; Visit Provider Nurse Practitioner Family
DX: Z12.31 Encounter for screening mammogram for malignant neoplasm of breast (principal)
CPT/HCPCS: 77063; 77067

== ENCOUNTER 2022-10-30 10:38 | Outpatient (REF) | payer MEDICARE, SELFPAY ==
[2022-10-30 15:09] LABS: Anion Gap 5.9 mmol/L (3-11); BUN 13 mg/dL (7-18); CO2 31.1 mmol/L (21.0-32.0); CREATININE 0.9 mg/dL (0.55-1.02); Calcium 8.4 mg/dL (8.5-10.1); Chloride 97 mmol/L (98-107); Estimated GFR 66.67 (mL/min/1.73m2); Glucose 83 mg/dL (74-106); Magnesium 1.8 mg/dL (1.8-2.4); Potassium 4.5 mmol/L (3.5-5.1); Sodium 134 mmol/L (136-145); TSH (W/Ref FT4) 4.04 uIU/mL (0.36-3.74); Vitamin B12 953 pg/mL (193-986)
[2022-10-30 15:48] LABS: FREE T4 1.25 ng/dL (0.76-1.46)
== END 2022-10-30 10:39 | disposition home or self-care (01) ==
LOC: NCHCN 10:38
PROVIDERS: PCP Nurse Practitioner Family; Visit Provider Nurse Practitioner Family
DX: R68.81 Early satiety (principal); R53.83 Other fatigue; E87.1 Hypo-osmolality and hyponatremia; E03.9 Hypothyroidism, unspecified; I10 Essential (primary) hypertension; R25.2 Cramp and spasm
CPT/HCPCS: 80048; 82607; 83735; 84439; 84443

== ENCOUNTER 2022-12-23 12:27 | Outpatient (REF) | payer MEDICARE, SELFPAY ==
[2022-12-23 15:39] LABS: Anion Gap 8.4 mmol/L (3-11); BUN 15 mg/dL (7-18); CO2 29.6 mmol/L (21.0-32.0); CREATININE 0.9 mg/dL (0.55-1.02); Calcium 8.9 mg/dL (8.5-10.1); Chloride 101 mmol/L (98-107); Estimated GFR 66.67 (mL/min/1.73m2); Glucose 93 mg/dL (74-106); Potassium 4.3 mmol/L (3.5-5.1); Sodium 139 mmol/L (136-145); TSH (W/Ref FT4) 3.32 uIU/mL (0.36-3.74)
== END 2022-12-23 12:28 | disposition home or self-care (01) ==
LOC: NCHCN 12:27
PROVIDERS: PCP Nurse Practitioner Family; Visit Provider Nurse Practitioner Family
DX: E03.9 Hypothyroidism, unspecified (principal); I10 Essential (primary) hypertension; E87.1 Hypo-osmolality and hyponatremia
CPT/HCPCS: 80048; 84443

== ENCOUNTER 2023-03-16 02:21 | Outpatient (CLI) | payer MEDICARE, SELFPAY ==
[2023-03-16 10:05] LABS: ALT 17 U/L (14-59); AST 16 U/L (15-37); Albumin 3.5 g/dL (3.4-5.0); Alkaline Phosphatase 65 U/L (46-116); Anion Gap 6.6 mmol/L (3-11); BUN 13 mg/dL (7-18); Bilirubin, Total 0.4 mg/dL (0.2-1.0); CO2 30.4 mmol/L (21.0-32.0); Calcium 8.7 mg/dL (8.5-10.1); Chloride 99 mmol/L (98-107); Estimated GFR 58.75 (mL/min/1.73m2); Glucose 114 mg/dL (74-106); Magnesium 1.8 mg/dL (1.8-2.4); Potassium 4.1 mmol/L (3.5-5.1); Sodium 136 mmol/L (136-145); TSH 5.22 uIU/mL (0.36-3.74); Total Protein 7.3 g/dL (6.4-8.2); Vitamin B12 1023 pg/mL (193-986)
[2023-03-16 10:53] LABS: PHOSPHORUS 4.5 mg/dL (2.6-4.7)
[2023-03-16 18:31] LABS: Parathyroid Hormone,Intact 18 pg/mL (19-88)
[2023-03-18 17:25] LABS: Calcitonin <5.0 pg/mL (<=7.6)
[2023-03-20 15:53] LABS: Metanephrine, Free <0.20 nmol/L (<0.50); Normetanephrine, Free 0.89 nmol/L (<0.90)
== END 2023-03-16 02:22 | disposition home or self-care (01) ==
LOC: LBO 02:22
PROVIDERS: PCP Nurse Practitioner Family; Visit Provider Internal Medicine Endocrinology, Diabetes & Metabolism
DX: R60.0 Localized edema (principal); E89.0 Postprocedural hypothyroidism; E89.2 Postprocedural hypoparathyroidism; C73 Malignant neoplasm of thyroid gland; R53.83 Other fatigue; E87.1 Hypo-osmolality and hyponatremia; I10 Essential (primary) hypertension; R41.3 Other amnesia; K21.9 Gastro-esophageal reflux disease without esophagitis; G47.33 Obstructive sleep apnea (adult) (pediatric); R42 Dizziness and giddiness; Z79.899 Other long term (current) drug therapy
CPT/HCPCS: 36415; 80053; 82306; 82308; 82607; 83735; 83835; 83970; 84100; 84443

== ENCOUNTER 2023-05-05 10:41 | Outpatient (REF) | payer MEDICARE, SELFPAY ==
[2023-05-05 15:03] LABS: TSH (W/Ref FT4) 3.54 uIU/mL (0.36-3.74)
== END 2023-05-05 10:42 | disposition home or self-care (01) ==
LOC: NCHCN 10:41
PROVIDERS: PCP Nurse Practitioner Family; Visit Provider Nurse Practitioner Family
DX: E03.9 Hypothyroidism, unspecified (principal); R20.2 Paresthesia of skin; R60.0 Localized edema
CPT/HCPCS: 84443

== ENCOUNTER 2023-06-04 18:54 | Outpatient (REF) | payer MEDICARE, SELFPAY ==
[2023-06-04 21:11] LABS: BUN 13 mg/dL (7-18); Calcium 8.6 mg/dL (8.5-10.1); Chloride 100 mmol/L (98-107); Estimated GFR 58.75 (mL/min/1.73m2); Glucose 128 mg/dL (74-106); NT-proBNP 252 pg/mL (<300); Potassium 4.2 mmol/L (3.5-5.1); Sodium 137 mmol/L (136-145)
== END 2023-06-04 18:55 | disposition home or self-care (01) ==
LOC: NCHCN 18:54
PROVIDERS: PCP Nurse Practitioner Family; Visit Provider Nurse Practitioner Family
DX: R60.0 Localized edema (principal)
CPT/HCPCS: 80048; 83880

== ENCOUNTER 2023-06-19 12:49 | Outpatient (REF) | payer MEDICARE, SELFPAY | END 2023-06-19 12:50 | disposition home or self-care (01) | LOC: NCHCN 12:49 | PROVIDERS: PCP Nurse Practitioner Family; Visit Provider Family Medicine | DX: R35.0 Frequency of micturition (principal); R82.79 Other abnormal findings on microbiological examination of urine | CPT/HCPCS: 87077; 87086; 87186 ==

== ENCOUNTER → 2023-07-09 01:40 | Outpatient (CLI) | payer MEDICARE, SELFPAY ==
--- NOTE | 2023-07-09 | DI.US_ITS ---
Exam(s) US EXTREMITY VENOUS BI EXAM: US EXTREMITY VENOUS BI CLINICAL HISTORY: ACUTE DVT OF BILAT LEGS, I82.403. TECHNIQUE: Bilateral lower extremity venous ultrasound performed using grayscale, color-flow, and sp ectral Doppler analysis. COMPARISON: No exams were available for comparison FINDINGS: The bilateral common femoral, femoral and popliteal veins demonstrate normal compressibility, augment ation, and color Doppler. The calf veins are patent. No Garcia's cyst. No hematoma. IMPRESSION: Right: Negative for DVT Left: Negative for DVT DATA REPOSITORY:
== END ==
PROVIDERS: PCP Nurse Practitioner Family; Visit Provider Nurse Practitioner Family
DX: I82.403 Acute embolism and thrombosis of unspecified deep veins of lower extremity, bilateral (principal)
CPT/HCPCS: 93970

== ENCOUNTER → 2023-07-14 12:40 | Outpatient (CLI) | payer MEDICARE, SELFPAY ==
--- NOTE | 2023-07-14 | DI.RAD_ITS ---
Exam(s) XR LUMBAR SPINE COMPLETE EXAM: XR LUMBAR SPINE COMPLETE CLINICAL HISTORY: S/P FALL, W19.XXXA, BACK PAIN, M54.50. TECHNIQUE: 2D digital imaging was performed of the lumbar spine. Five images were obtained. AP, la teral, right oblique, left oblique and L5-S1 spot views were obtained. COMPARISON: No exams were available for comparison FINDINGS: BONES: No fracture or destructive lesion. There are endplate osteophytes are multiple levels of the l umbar spine. Degenerative changes of the facets are seen at L4-5 and L5-S1. DISKS: Disc space narrowing is seen at L1-L2 and L2-L3. ALIGNMENT: There is anterolisthesis of L4 on L5. No spondylolysis or spondylolisthesis. SOFT TISSUE: Atherosclerosis is present. IMPRESSION: No acute fracture or subluxation in the lumbar spine. DATA REPOSITORY: RADIATION DOSE DELIVERED:
--- NOTE | 2023-07-14 | DI.RAD_ITS ---
Exam(s) XR HIP PELVIS ADULT BL EXAM: XR HIP PELVIS ADULT BL CLINICAL HISTORY: S/P FALL,W19.XXXA, BILAT HIP PAIN, M25.552,M25.551. TECHNIQUE: 2D digital imaging was performed of the pelvis and bilateral hips. Three images were obt ained. AP pelvis and lateral views of both hips were obtained. COMPARISON: CR XR HIP PELVIS ADULT BL from 04/22/2021 FINDINGS: BONES: No acute fracture is present. No bony destructive lesion is seen. There is again seen osteitis pubis. The sacroiliac joints are well maintained. JOINTS: No dislocation present. SOFT TISSUE: There is mild atherosclerosis. IMPRESSION: No acute fracture or subluxation. DATA REPOSITORY: RADIATION DOSE DELIVERED:
== END ==
PROVIDERS: PCP Nurse Practitioner Family; Visit Provider Nurse Practitioner Family
DX: W19.XXXA Unspecified fall, initial encounter (principal); M54.50 Low back pain, unspecified
CPT/HCPCS: 73521; 72110

== ENCOUNTER 2023-10-07 09:32 | Outpatient (REF) | payer MEDICARE, SELFPAY ==
[2023-10-07 16:38] LABS: TSH (W/Ref FT4) 1.73 uIU/mL (0.36-3.74)
== END 2023-10-07 09:33 | disposition home or self-care (01) ==
LOC: NCHCN 09:32
PROVIDERS: PCP Nurse Practitioner Family; Visit Provider Nurse Practitioner Family
DX: E03.9 Hypothyroidism, unspecified (principal)
CPT/HCPCS: 84443

== ENCOUNTER 2023-10-17 15:09 | Outpatient (REF) | payer MEDICARE, SELFPAY ==
[2023-10-17 15:30] LABS: WBC >50 HPF (0-5)
[2023-10-17 15:31] LABS: Bacteria Few HPF (Negative); C & S Indicated? C&S Done As Ordered; Casts Negative LPF (Negative); Crystals Negative HPF (Negative); Epithelial Cells Rare HPF (Negative); Mucus Negative (Negative)
== END 2023-10-17 15:10 | disposition home or self-care (01) ==
LOC: LBN 15:09
PROVIDERS: PCP Nurse Practitioner Family; Visit Provider Physician Assistant Medical
DX: R30.0 Dysuria (principal); R82.998 Other abnormal findings in urine; N89.8 Other specified noninflammatory disorders of vagina
CPT/HCPCS: 81015; 87086; 87480; 87510; 87660

== ENCOUNTER 2024-05-17 10:22 | Outpatient (REF) | payer MEDICARE, SELFPAY ==
[2024-05-17 14:56] LABS: Hemoglobin A1C 5.9 % (<5.7)
[2024-05-17 15:29] LABS: ALT 21 U/L (14-59); AST 15 U/L (15-37); Albumin 3.6 g/dL (3.4-5.0); Alkaline Phosphatase 64 U/L (46-116); Anion Gap 10.5 mmol/L (3-11); BUN 16 mg/dL (7-18); Bilirubin, Total 0.57 mg/dL (0.2-1.0); CO2 27.5 mmol/L (21.0-32.0); CREATININE 1.1 mg/dL (0.55-1.02); Calcium 8.8 mg/dL (8.5-10.1); Calculated LDL 63 mg/dL (<100); Chloride 104 mmol/L (98-107); Cholesterol 129 mg/dL (<200); Estimated GFR 52.08 (mL/min/1.73m2); Glucose 92 mg/dL (74-106); HDL Cholesterol 53 mg/dL (40-60); Magnesium 1.9 mg/dL (1.8-2.4); Potassium 4.3 mmol/L (3.5-5.1); Sodium 142 mmol/L (136-145); TSH 0.25 uIU/Ml (0.36-3.74); Total Protein 6.8 g/dL (6.4-8.2); Triglyceride 66 mg/dL (<150); Vitamin B12 803 pg/mL (193-986); Vitamin D 25 Total 79.4 ng/mL (30-100)
[2024-05-17 16:12] LABS: FREE T4 1.42 ng/dL (0.76-1.46)
[2024-05-17 23:22] LABS: Parathyroid Hormone,Intact 20 pg/mL (19-88)
== END 2024-05-17 10:23 | disposition home or self-care (01) ==
LOC: NCHCN 10:22
PROVIDERS: PCP Nurse Practitioner Family; Visit Provider Nurse Practitioner Family
DX: I10 Essential (primary) hypertension (principal); C73 Malignant neoplasm of thyroid gland
CPT/HCPCS: 80053; 80061; 82306; 82607; 83036; 83735; 83970; 84439; 84443

== ENCOUNTER 2024-07-07 15:39 | Outpatient (REF) | payer MEDICARE, SELFPAY ==
[2024-07-07 22:23] LABS: FREE T4 0.98 ng/dL (0.76-1.46)
== END 2024-07-07 15:40 | disposition home or self-care (01) ==
LOC: NCHCN 15:39
PROVIDERS: PCP Nurse Practitioner Family; Visit Provider Nurse Practitioner Family
DX: E03.9 Hypothyroidism, unspecified (principal)
CPT/HCPCS: 84439; 84443

== ENCOUNTER 2024-08-23 23:02 | Outpatient (REF) | payer MEDICARE, SELFPAY ==
[2024-08-23 15:06] LABS: FREE T4 1.17 ng/dL (0.76-1.46); TSH 4.68 uIU/mL (0.36-3.74)
== END 2024-08-23 23:03 | disposition home or self-care (01) ==
LOC: NCHCN 23:02
PROVIDERS: PCP Nurse Practitioner Family; Visit Provider Nurse Practitioner Family
DX: C73 Malignant neoplasm of thyroid gland (principal)
CPT/HCPCS: 84439; 84443

== ENCOUNTER → 2024-09-01 09:54 | Outpatient (BNVA) | payer MEDICARE, SELFPAY | PROVIDERS: PCP Nurse Practitioner Family; Referring Provider Nurse Practitioner Family; Visit Provider Physical Therapy Assistant | DX: Z12.11 Encounter for screening for malignant neoplasm of colon (principal); Z80.0 Family history of malignant neoplasm of digestive organs; I10 Essential (primary) hypertension ==

== ENCOUNTER 2024-09-12 09:02 | Day surgery (SDC) | payer MEDICARE, SELFPAY ==
--- NOTE | 2024-09-11 15:52 | PDOC.DSDIS_ITS ---
Date of service: 09/12/24 Time of Service: 11:03 Discharge Plan Disposition Patient Disposition: Home Condition: Good Discharge Details Reason For Visit: screening colonoscopy Attending Provider: Elijah De La Paz Primary Care Provider: Meka Hadley Home Meds and New Rx's Prescriptions: Continued calcitriol 1 cap PO DAILY amlodipine [Norvasc] 10 mg tablet 10 mg PO HS fluoxetine [Prozac] 10 mg capsule 10 mg PO DAILY cyanocobalamin (vitamin B-12) 1,000 mcg capsule 1,000 mcg PO DAILY calcium carbonate [Calcium 600] 600 mg calcium (1,500 mg) tablet 600 mg PO BID pantoprazole 40 mg tablet,delayed release (DR/EC) See Rx Instructions .ROUTE .COMPLEX Qty: 90 4RF Dose Instruction: TAKE ONE TABLET BY MOUTH EVERY DAY Rx Instructions: TAKE ONE TABLET BY MOUTH EVERY DAY levothyroxine 100 mcg tablet 88 mcg PO DAILY Rx Instructions: thursday and , Thursday and Thursday, other days 75mcg lisinopril 40 MG tablet 40 mg PO HS potassium 99 mg Tablet 99 mg PO DAILY ergocalciferol (vitamin D2) [Vitamin D2] 50,000 unit Capsule 50,000 unit PO DAILY Patient Comments: pt. states it is vit D3 acetaminophen 650 mg Tablet Extended Release 650 mg PO Q8H PRN simvastatin 20 mg tablet 20 mg PO DAILY Patient Comments: TAKE ONE TABLET BY MOUTH AT BEDTIME amoxicillin 500 mg capsule Patient Comments: TAKE ONE CAPSULE BY MOUTH THREE TIMES A DAY UNTIL GONE FOR DENTAL INFECTION Discontinued bisacodyl [Dulcolax (bisacodyl)] 5 mg tablet,delayed release (DR/EC) 5 mg PO ONCE Qty: 4 0RF Rx Instructions: Take per colonoscopy instructions provided by ordering providers office polyethylene glycol 3350 17 gram/dose powder 17 g PO ONCE Qty: 238 0RF Rx Instructions: Take per colonoscopy instructions provided by ordering providers office Discharge Instructions Instructions: Diverticulosis Additional Instructions: Geovanna, it was a pleasure meeting you today, I hope you are comfortable throughout the procedure. Your colonoscopy went very smoothly. I did not see any signs of tumors or polyps anywhere along the length of your colon. You do have a little bit of diverticulosis. This occurs when the muscular part of the colon wall weakens as we get older. This causes the inside lining to pocket approach outwards. Most patients that I meet have diverticulosis, and never know about it. Some patients do experience pain that usually on the left side or lower portion of their abdomen. We often times refer to these flareups as episodes of diverticulitis. I will attach a little bit of information here about typical approaches to diverticular management. Broadly, however, my basic recommendation is to maintain a diet that is rich in fiber and stay well- hydrated. If you need anything, or have any questions at all, please do not hesitate to ask at any point. 1. If tolerated, consume a soft, low fiber diet for 1-2 days. 2[address] Do not drive, drink alcohol, operate machinery, make critical decisions, or do activities that require coordination or balance for 24 hours. 3. Because air was put into your colon during the procedure, expelling air from your rectum (passing gas or farting) is normal. 4. You may not have a bowel movement for 1-3 days because of the colonoscopy prep. This is normal. 5. Go directly to the emergency room if you notice any of the following: Develop chills (warm to touch), or if you have a thermometer and your temperature is above 101 Difficulty breathing or difficultly swallowing Persistent vomiting Severe abdominal pain, other than gas cramps Severe chest pain Black, tarry stools Any bleeding ? exceeding one tablespoon 6. Call your physician if the site where your intravenous was started becomes red, swollen, painful, and warm to touch. 7. Your physician has reviewed your pre-procedure medications. Please continue to take those medications as previously ordered. You will be given specific information/education regarding any changes to your medications before leaving. Stand Alone Forms: Anesthesia Discharge Inst., Colonoscopy Post Instructions, Elvin Mueller ([facility]) Activity:: Activity as Tolerated Diet:: As Tolerated Discharge Orders Discharge Orders: Discharge Order (Routine); Ordered 09/11/24 Ordered By: Elijah De La Paz
--- NOTE | 2024-09-11 15:54 | COLE_ITS ---
Date of service: 09/12/24 Time of Service: 11:04 Colonoscopy Report Date of procedure: 09/12/24 Pre-op diagnosis general: screening colonoscopy Post-op diagnosis procedure note: other (Diverticulosis) Procedure: colonoscopy Surgeon: Elijah De La Paz Anesthesia Type: General:No Airway Estimated blood loss (mL): 0 Pathology: none sent Complications: None Disposition: same day Indications: Geovanna is a 79 year old woman who needs her next screening colonoscopy Prep: Miralax/Dulcolax Procedure Start Time: 10:41 Procedure End Time: 10:58 Retraction Time: 10 Findings: Sigmoid diverticulosis Procedure Description: After the induction of monitored anesthetic care, and with the patient in left lateral decubitus position, I began by performing an external anorectal exam.? Perineum and skin were normal, as was the anal verge.? There was no evidence of external hemorrhoids.? Next, I performed a digital rectal exam.? I did not appreciate any abnormal findings.? Next, I advanced a colonoscope into the rectal vault.? I performed retroflexion.? This appeared normal.? Using insufflation, I then advanced the colonoscope beyond the rectal folds and into the sigmoid colon before advancing towards the cecum.? There was some sigmoid di verticulosis..? The scope was noted to be in the cecum by identification of the ileocecal valve and appendiceal orifice.? I then began withdrawing the colonoscope using repeated irrigation as necessary for full evaluation of the colonic mucosa. ?Once the scope was withdrawn to the level of the rectum, great care was taken to examine portions of the rectal folds. I did not see any signs of tumors or polyps along the length of the colon. finally, the scope was withdrawn and the patient was brought to the same-day surgery recovery unit as the anesthetic wore off. ?The findings and instructions were shared with the patient prior to discharge. [place] Bowel Prep [place] Bowel Prep Right Colon: 2 Left Colon: 3 Transverse Colon: 2 Total Score: 7
[2024-09-12 09:32] VITALS: BP 129/87; PULSE 67; RESP 16; TEMP 36.5; O2SAT 100
[2024-09-12] MEDS: Normal Saline Flush 10 ML SYR IV (09:55)
--- NOTE | 2024-09-12 10:27 | ANES.PREOP_ITS ---
General Info Date of Service Date Performed: 09/12/24 Height: 5 ft 5 in Weight: 80.7 kg Body Mass Index (BMI): 29.6 Surgical Procedure: Operation Date: 09/12/24 10:35 Proposed Procedure Side Surgeon p Colonoscopy Elijah De La Paz MD Actual Procedure Side Surgeon p Colonoscopy Elijah De La Paz MD Pre-Op Diagnosis Post-Op Diagnosis screening colonoscopy, family hx of colon CA Meds Allergies and Home Medications Allergies Allergy/AdvReac Type Severity Reaction Status Date / Time laundry detergent AdvReac skin Uncoded 09/12/24 09:36 irritation Home Medication ?Medication ?Instructions ?Recorded lisinopril 40 mg tablet 40 mg PO HS 11/23/14 ergocalciferol (vitamin D2) 1,250 50,000 unit PO DAILY 08/20/18 mcg (50,000 unit) capsule (Vitamin D2) potassium 99 mg tablet 99 mg PO DAILY 08/20/18 amlodipine 10 mg tablet (Norvasc) 10 mg PO HS 11/20/20 fluoxetine 10 mg capsule (Prozac) 10 mg PO DAILY 11/20/20 simvastatin 20 mg tablet 20 mg PO DAILY 03/06/21 acetaminophen 650 mg 650 mg PO Q8H PRN 05/10/21 tablet,extended release calcium carbonate (Calcium 600) 600 mg PO BID 05/02/22 cyanocobalamin (vitamin B-12) 1,000 mcg PO DAILY 05/02/22 1,000 mcg capsule calcitriol 1 cap PO DAILY 08/18/22 pantoprazole 40 mg tablet,delayed See Rx Instructions .Route 08/23/24 release .COMPLEX #90 tabs levothyroxine 100 mcg tablet 88 mcg PO DAILY 09/01/24 amoxicillin 500 mg capsule mg 09/12/24 Current Visit Medications: Current Medications Generic Name Dose Route Start Last Admin Trade Name Freq PRN Reason Stop Dose Admin IV Miscellaneous Supplies 1 each 09/12/24 06:00 Iv Access IV 09/12/24 23:59 DIRECTED [facility] Ondansetron HCl 4 mg 09/11/24 15:55 Ondansetron 4 Mg/2 Ml Vial IVP 10/11/24 15:54 Q4H PRN PRN Nausea / Vomiting Sodium Chloride 0 ml 09/12/24 06:00 09/12/24 09:55 Normal Saline Flush 10 Ml Syr IV 09/12/24 23:59 10 ml PRN PRN Administration Sodium Chloride 0 ml 09/12/24 06:00 Normal Saline 10 Ml Vial IJ 09/12/24 23:59 DIRECTED PRN Sterile Water 0 ml 09/12/24 06:00 Water,Injection,Sterile 10 Ml Vial IJ 09/12/24 23:59 DIRECTED PRN PFSH Active Problems Active Problems: Problem Status Onset Code Dizziness Acute R42 Muscle cramps Acute R25.2 Change in voice Acute R49.9 Xerostomia Acute K11.7 Multiple endocrine neoplasia Acute E31.20 Benign paroxysmal positional vertigo of right ear Acute H81.11 Thyroid disorder Acute E07.9 Hiatal hernia with gastroesophageal reflux disease and esophagitis Acute K44.9, K21.00 ROB (obstructive sleep apnea) Chronic G47.33 Mass of stomach Acute K31.89 Back pain Acute M54.9 Bradycardia Acute R00.1 Breath shortness Acute R06.02 Esophagitis determined by endoscopy Acute K20.9 Gastritis Acute K29.70 History of esophagogastroduodenoscopy (EGD) Chronic ~08/24/18 Z98.890 Sensorineural hearing loss, bilateral Acute 02/26/17 H90.3 H/O surgical procedure Chronic Z98.89 Hypertension Chronic I10 Gallstone pancreatitis Acute 11/23/14 K85.1 Medical History Medical History (Updated 09/12/24 @ 09:40 by Marla Johnson) History of stent insertion of renal artery Right Family history of colon cancer sister per referral Family history of total knee replacement Presence of total knee joint prosthesis Essential hypertension Retrograde amnesia 2014 Spasm Atherosclerosis of coronary artery without angina pectoris Hypothyroidism Malignant tumor of thyroid gland pt. denies Localized edema Hypo-osmolality and hyponatremia Stress incontinence Skin changes due to chronic exposure to nonionizing radiation Lung disorder Vaginal irritation Irregular bowel habits GERD (gastroesophageal reflux disease) Memory loss Paresthesia Dry mouth Dysuria Pulmonary nodule Family history of skin cancer Skin nodule Ear pain, right Cold intolerance Preventative health care Pancreatitis Obesity Periodic limb movement disorder Confusion Altered consciousness Aphasia Dermatitis of ear canal Pain, joint, knee, left BCC (basal cell carcinoma) Actinic skin damage Hypomagnesemia Bilateral leg cramps Chronic left hip pain History of depression Thoracic back pain Left hip pain Hyponatremia Dyspepsia Dysphagia ASCVD (arteriosclerotic cardiovascular disease) pt. denies this Essential hypertension Surgical History Surgical History (Updated 09/12/24 @ 09:40 by Marla Johnson) Hx of bilateral cataract extraction History of arthroplasty of right knee Hx of colonoscopy Hx of thyroidectomy History of biopsy H/O section x3 History of esophagogastroduodenoscopy (EGD) (~05/10/21) Hx of cholecystectomy Tobacco Smoking/Tobacco Use Status: Former Tobacco Use Alcohol Alcohol Intake: current Alcohol intake frequency: a few times a week Alcohol type: wine Substance Use Substance use: Never Substance use type: does not use Details: alcohol: t-4, one glass Vital Signs and Lab Results Vital Signs Most Recent Vital Signs in EMR: Most Recent Vital Signs Temp Pulse Resp BP Pulse Ox 36.5 C 67 16 129/87 100 09/12/24 09:32 09/12/24 09:32 09/12/24 09:32 09/12/24 09:32 09/12/24 09:32 Lab Results Blood Type / Crossmatch: No Data to Display Complete Blood Count: No Data to Display Complete Metabolic Panel: No Data to Display Liver Function Panel: No Data to Display Coagulation Panel: No Data to Display Cardiac Panel: No Data to Display Arterial Blood Gas: No Data to Display Venous Blood Gas: No Data to Display Pancreas Panel: No Data to Display Thyroid Panel: Thyroid Stimulating Hormone (TSH) 4.68 uIU/mL (0.36-3.74) H 08/23/24 10:00 Infectious Disease: No Data to Display Blood Cultures: No Data to Display Toxicology Panel: No Data to Display Anesthesia Assessment and Plan Anesthesia History Personal History: No History of Anesthesia Complications Family History: No Family History of Anesthesia Complications Exercise Tolerance Exercise Tolerance: Metabolic Equivalents<4 Pertinent Negatives Pertinent Negatives: No Symptoms of GERD Cardiac & Pulmonary Exam Cardiac Exam: Normal S1/S2 Heart Sounds Pulmonary Exam: Clear Bilateral Breath Sounds Implantable Cardiac Device Does patient have a Pacemaker or an ICD?: No Airway Exam Known Difficult Airway: No Mallampati Class: 3 Mouth Opening: Normal (> 3cm) Thyromental Distance: Greater than 3 cm Neck Range of Motion: Full ROM Neck Circumference: Normal Teeth Condition: Normal Dentition Airway Comments: ROB ASA Classification ASA Score: ASA 3 Emergency Case?: No NPO Status NPO Status: NPO Clears >2 hours, Solids >8 hours Anesthesia Plan Resuscitation Status: Full Code Anesthesia Technique: General Anesthesia Airway Planned: Natural Airway Monitors Used: Standard Monitors
[2024-09-12 10:28] VITALS: BMI 29.6
[2024-09-12 11:05] VITALS: BP 114/75; PULSE 77; RESP 16; TEMP 36.3; O2SAT 93
--- NOTE | 2024-09-12 11:11 | W.ANESPOSTOP ---
Postoperative Evaluation Date, Time and Location Date Performed: 09/12/24 Time Performed: 11:11 Patient Location: Day Surgery Unit Vital Signs Most Recent Imported Vital Signs: Most Recent Vital Signs Temp Pulse Resp BP Pulse Ox 36.3 C L 77 16 114/75 93 09/12/24 11:05 09/12/24 11:05 09/12/24 11:05 09/12/24 11:05 09/12/24 11:05 Pain Score Most Recent Pain Score: Most Recent Pain Score Pain Level 0 09/12/24 11:05 Assessment Mental Status: Awake (Alert & Oriented to Patient Baseline) Airway and Respiratory Function: Patent airway with normal (patient baseline) respiratory exam Cardiovascular Function: Hemodynamically Stable Hydration Status: Adequately Hydrated Nausea & Vomiting: No Nausea or Vomiting Pain: Pt. Denies Any Pain Peripheral Nerve Block: Patient did not receive a nerve block
[2024-09-12 11:40] VITALS: BP 131/50; PULSE 69; RESP 16; TEMP 36.5; O2SAT 95
== END 2024-09-12 11:54 | disposition home or self-care (01) ==
LOC: SUR 09:03
PROVIDERS: PCP Nurse Practitioner Family; Visit Provider Surgery
PROC: 0DJD8ZZ Inspection of Lower Intestinal Tract, Via Natural or Artificial Opening Endoscopic (ICD-10-PCS; CPT 45378; principal; 2024-09-12 10:30)
DX: Z12.11 Encounter for screening for malignant neoplasm of colon (principal); K57.30 Diverticulosis of large intestine without perforation or abscess without bleeding; Z80.0 Family history of malignant neoplasm of digestive organs
CPT/HCPCS: G0105; J2003; J2704

== ENCOUNTER 2024-10-06 09:19 | Outpatient (REF) | payer MEDICARE, SELFPAY ==
[2024-10-06 15:14] LABS: FREE T4 1.18 ng/dL (0.76-1.46); TSH 2.62 uIU/mL (0.36-3.74)
== END 2024-10-06 09:20 | disposition home or self-care (01) ==
LOC: NCHCN 09:19
PROVIDERS: PCP Nurse Practitioner Family; Visit Provider Nurse Practitioner Family
DX: E03.9 Hypothyroidism, unspecified (principal)
CPT/HCPCS: 84439; 84443

== ENCOUNTER → 2025-04-05 13:27 | Outpatient (BNVA) | payer MEDICARE, SELFPAY | PROVIDERS: PCP Nurse Practitioner Family; Referring Provider Nurse Practitioner Family; Visit Provider Nurse Practitioner Adult Health | DX: R41.3 Other amnesia (principal); I10 Essential (primary) hypertension; R47.89 Other speech disturbances | CPT/HCPCS: 99215 ==

== ENCOUNTER 2025-04-27 02:04 | Outpatient (CLI) | payer MEDICARE, SELFPAY ==
--- NOTE | 2025-04-27 07:00 | DI.MRI_ITS ---
Exam(s) MR BRAIN WO EXAM: MR BRAIN WO CLINICAL HISTORY: Word finding difficulty,MEMORY LOSS,R47.89,R41.3 TECHNIQUE: Multiplanar multisequence MRI of the brain was performed. COMPARISON: No exams were available for comparison FINDINGS: CEREBRAL PARENCHYMA: There is no evidence of intracranial hemorrhage, mass effect, or shift of midline structures. There are no extra-axial fluid collections. Ventricles are not enlarged or shifted. There is a small focus of T1 hyperintensity in the left cerebellar hemisphere which is probably artifact as there is no abnormal signal at this location on the other sequences including the SWI sequences. Also no restricted diffusion at this level. There are multiple foci of signal abnormality in the Suze in supra ventricular white matter consistent with probable scrotal if chronic small vessel disease. These are not associated with hemorrhage, surrounding edema, nor restricted diffusion. There is no significant focal signal abnormality evident on diffusion imaging to suggest acute ischemic event. PITUITARY GLAND: No mass nor parasellar abnormality. No obvious abnormality in the cavernous sinuses. FLOW VOIDS: The expected flow void are noted. No evidence of obvious aneurysm nor obvious vascular malformation. PARANASAL SINUSES: The visualized paranasal sinuses appear unremarkable. No obvious finding . Frontal sinuses are not developed. ORBITS: Prior bilateral cataract surgery. No other orbital findings. IMPRESSION: There are multiple bilateral foci of white matter signal abnormality not associated with hemorrhage, surrounding edema, nor restricted diffusion. These are most probably sequelae of chronic small-vessel white matter ischemic disease. There is no evidence of restricted diffusion to suggest acute ischemic event. DATA REPOSITORY:
== END 2025-04-27 02:24 ==
PROVIDERS: PCP Nurse Practitioner Family; Visit Provider Nurse Practitioner Adult Health
DX: R41.3 Other amnesia (principal); R47.89 Other speech disturbances
CPT/HCPCS: 70551

== ENCOUNTER 2025-05-11 13:20 | Outpatient (REF) | payer MEDICARE, SELFPAY ==
[2025-05-11 16:41] LABS: ALT 20 U/L (14-59); AST 14 U/L (15-37); Albumin 3.5 g/dL (3.4-5.0); Alkaline Phosphatase 72 U/L (46-116); Anion Gap 7.6 mmol/L (3-11); BUN 12 mg/dL (7-18); Bilirubin, Total 0.6 mg/dL (0.2-1.0); CO2 29.4 mmol/L (21.0-32.0); Calcium 8.6 mg/dL (8.5-10.1); Chloride 102 mmol/L (98-107); Estimated GFR 65.84 (mL/min/1.73m2); Glucose 96 mg/dL (74-106); Magnesium 1.8 mg/dL (1.8-2.4); Potassium 4.1 mmol/L (3.5-5.1); Sodium 139 mmol/L (136-145); Total Protein 6.7 g/dL (6.4-8.2); Vitamin B12 1012 pg/mL (193-986)
== END 2025-05-11 13:21 | disposition home or self-care (01) ==
LOC: NCHCN 13:20
PROVIDERS: PCP Nurse Practitioner Family; Visit Provider Nurse Practitioner Family
DX: I10 Essential (primary) hypertension (principal); K21.9 Gastro-esophageal reflux disease without esophagitis
CPT/HCPCS: 80053; 82607; 83735

== ENCOUNTER 2025-05-16 12:55 | Outpatient (REF) | payer MEDICARE, SELFPAY | END 2025-05-16 12:56 | disposition home or self-care (01) | LOC: NCHCN 12:55 | PROVIDERS: PCP Nurse Practitioner Family; Visit Provider Nurse Practitioner Family | DX: R39.9 Unspecified symptoms and signs involving the genitourinary system (principal) | CPT/HCPCS: 87077; 87086; 87186 ==

== ENCOUNTER → 2025-05-31 14:56 | Outpatient (BNVA) | payer MEDICARE, SELFPAY | PROVIDERS: PCP Nurse Practitioner Family; Referring Provider Nurse Practitioner Family; Visit Provider Nurse Practitioner Adult Health | DX: G31.84 Mild cognitive impairment of uncertain or unknown etiology (principal) | CPT/HCPCS: 99215 ==

== ENCOUNTER 2025-10-10 12:28 | Outpatient (REF) | payer MEDICARE, SELFPAY ==
[2025-10-10 15:44] LABS: TSH (W/Ref FT4) 9.05 uIU/mL (0.55-4.78)
[2025-10-10 15:45] LABS: Anion Gap 8.9 mmol/L (3-11); BUN 12 mg/dL (9-23); CO2 29.1 mmol/L (20.0-31.0); Calcium 8.5 mg/dL (8.3-10.6); Chloride 103 mmol/L (98-107); Glucose 96 mg/dL (74-106); Potassium 4.1 mmol/L (3.5-5.1); Sodium 141 mmol/L (136-145)
== END 2025-10-10 12:29 | disposition home or self-care (01) ==
LOC: NCHCN 12:28
PROVIDERS: PCP Nurse Practitioner Family; Visit Provider Nurse Practitioner Family
DX: I10 Essential (primary) hypertension (principal); E03.9 Hypothyroidism, unspecified
CPT/HCPCS: 80048; 84439; 84443